=== PATIENT | male | born 1945 | race Caucasian/White ===

== ENCOUNTER 2020-10-30 12:14 | Emergency (ER) | payer MEDICARE, BC ==
[2020-10-30] MEDS ORDERED: Sodium Chloride 0.9% 1,000 ML IV STA (13:25)
[2020-10-30] MEDS ORDERED: Sodium Chloride 0.9% 10 ML Syringe FLUSH PRN (13:25)
[2020-10-30] MEDS ORDERED: fentaNYL 100 MCG/2 ML SDV IVPUSH ONE (13:26)
[2020-10-30] MEDS ORDERED: Ondansetron 4 MG/2 ML SDV IVPUSH ONE (13:26)
--- NOTE | 2020-10-30 13:29 | EDM.PDOC ---
ED HPI GENERAL MEDICAL PROBLEM - General Chief Complaint: Gastrointestinal Problem Stated Complaint: VOMITING FOR SEVERAL DAYS Time Seen by Provider: 10/30/20 13:21 Source of Information: Reports: Patient, Family, RN Notes Reviewed History Limitations: Reports: No Limitations - History of Present Illness INITIAL COMMENTS - FREE TEXT/NARRATIVE: 75-year-old gentleman presents emergency department with a complaint of abdominal pain with nausea vomiting, he states about 3 weeks ago he had a bout of nausea and vomiting it resolved then it has returned over the last couple days he has not had any fevers initially had some diarrhea but now that has gone to constipation has not had a bowel movement for 3 days. No chest pain no shortness of breath - Related Data Allergies Allergy/AdvReac Type Severity Reaction Status Date / Time No Known Allergies Allergy Verified 10/30/20 12:53 Home Meds: Home Meds Aspirin [Halfprin] 81 mg PO DAILY 10/30/20 [History] Clopidogrel [Plavix] 75 mg PO DAILY 10/30/20 [History] DULoxetine [Cymbalta] 30 mg PO DAILY 10/30/20 [History] Fenofibrate,Micronized [Fenofibrate] 134 mg PO DAILY 10/30/20 [History] Gabapentin [Neurontin] 900 mg PO TID 10/30/20 [History] QUEtiapine [SEROquel XR] 50 mg PO DAILY 10/30/20 [History] Spironolactone [Aldactone] 25 mg PO DAILY 10/30/20 [History] Zolpidem [Ambien] 5 mg PO DAILY 10/30/20 [History] allopurinoL [Zyloprim] 100 mg PO DAILY 10/30/20 [History] amLODIPine [Norvasc] 10 mg PO DAILY 10/30/20 [History] atorvaSTATin [Lipitor] 80 mg PO BEDTIME 10/30/20 [History] carBAMazepine [Carbamazepine ER] 2 tab PO BID 10/30/20 [History] carvediloL [Carvedilol] 12.5 mg PO BID 10/30/20 [History] glipiZIDE [Glipizide Xl] 5 mg PO DAILY 10/30/20 [History] lisinopriL [Lisinopril] 10 mg PO BEDTIME 10/30/20 [History] lisinopriL [Lisinopril] 20 mg PO DAILY 10/30/20 [History] Past Medical History HEENT History: Reports: Impaired Vision Cardiovascular History: Reports: Bypass, CAD, High Cholesterol, Hypertension Respiratory History: Reports: COPD Gastrointestinal History: Reports: Chronic Constipation, GERD Musculoskeletal History: Reports: Back Pain, Chronic, Gout Psychiatric History: Reports: Dementia, PTSD Endocrine/Metabolic History: Reports: Obesity/BMI 30+ Hematologic History: Reports: Anticoagulation Therapy - Infectious Disease History Infectious Disease History: Reports: Hepatitis C - Past Surgical History Head Surgeries/Procedures: Reports: None HEENT Surgical History: Reports: None Cardiovascular Surgical History: Reports: Coronary Artery Bypass, Coronary Artery Stent Respiratory Surgical History: Reports: None GI Surgical History: Reports: Cholecystectomy, Colonoscopy Endocrine Surgical History: Reports: None Neurological Surgical History: Reports: Spinal Fusion Dermatological Surgical History: Reports: None Social & Family History - Tobacco Use Tobacco Use Status *Q: Former Tobacco User Used Tobacco, but Quit: Yes Month/Year Tobacco Last Used: 09/2020 Second Hand Smoke Exposure: Yes - Caffeine Use Caffeine Use: Reports: Soda - Recreational Drug Use Recreational Drug Use: No ED ROS GENERAL - Review of Systems Review Of Systems: See Below Constitutional: Reports: No Symptoms HEENT: Reports: No Symptoms Respiratory: Reports: No Symptoms Cardiovascular: Reports: No Symptoms GI/Abdominal: Reports: Abdominal Pain, Constipation, Diarrhea, Flatus, Nausea, Vomiting : Reports: No Symptoms ED EXAM, GI/ABD - Physical Exam Exam: See Below Exam Limited By: No Limitations General Appearance: Alert, WD/WN, No Apparent Distress Respiratory/Chest: No Respiratory Distress, Lungs Clear, Normal Breath Sounds, No Accessory Muscle Use, Chest Non-Tender Cardiovascular: Regular Rate, Rhythm, No Murmur GI/Abdominal Exam: Normal Bowel Sounds, Soft, No Distention, Tender (Epigastric region) Course - Vital Signs Last Recorded V/S: Last Vital Signs Temp 96.4 F L 10/30/20 13:00 Pulse 71 10/30/20 14:39 Resp 26 H 10/30/20 13:00 BP 140/76 10/30/20 14:39 Pulse Ox 97 10/30/20 14:39 - Orders/Labs/Meds Orders: Active Orders 24 hr Category Date Time Status Peripheral IV Care [RC] . DIRECTED Care 10/30/20 13:25 Active Sodium Chloride 0.9% [Saline Flush] Med 10/30/20 13:25 Active 10 ml FLUSH ASDIRECTED PRN Peripheral IV Insertion Adult [OM.PC] Urgent Oth 10/30/20 13:25 Ordered Medication Orders Sodium Chloride (Sodium Chloride 0.9% 10 Ml Syringe) 10 ml FLUSH ASDIRECTED PRN PRN Reason: Keep Vein Open Labs: Laboratory Tests 10/30/20 10/30/20 10/30/20 Range/Units 13:38 13:38 13:38 WBC 10.1 (4.5-11.0) K/uL RBC 4.84 (4.30-5.90) M/uL Hgb 14.6 (12.0-15.0) g/dL Hct 43.7 (40.0-54.0) % MCV 90 (80-98) fL MCH 30 (27-31) pg MCHC 33 (32-36) % Plt Count 264 (150-400) K/uL Neut % (Auto) 73 H (36-66) % Lymph % (Auto) 16 L (24-44) % [place] % (Auto) 8 H (2-6) % Eos % (Auto) 3 (2-4) % Baso % (Auto) 0 (0-1) % Sodium 142 (140-148) mmol/L Potassium 4.0 (3.6-5.2) mmol/L Chloride 105 (100-108) mmol/L Carbon Dioxide 28 (21-32) mmol/L Anion Gap 9.0 (5.0-14.0) mmol/L BUN 15 (7-18) mg/dL Creatinine 1.3 (0.8-1.3) mg/dL Est Cr Clr Drug Dosing 60.49 mL/min Estimated GFR (MDRD) 54 L (>60) Glucose 143 H (74-106) mg/dL Lactic Acid 1.0 (0.4-2.0) mmol/L Calcium 9.0 (8.5-10.1) mg/dL Total Bilirubin 1.0 (0.2-1.0) mg/dL AST 22 (15-37) U/L ALT 23 (12-78) U/L Alkaline Phosphatase 47 (46-116) U/L Troponin I < 0.017 (0.000-0.056) ng/mL Total Protein 6.7 (6.4-8.2) g/dL Albumin 2.7 L (3.4-5.0) g/dL Globulin 4.0 H (2.3-3.5) g/dL Albumin/Globulin Ratio 0.7 L (1.2-2.2) Lipase 831 H (73-393) U/L Urine Color (YELLOW) Urine Appearance (CLEAR) Urine pH (5.0-8.0) Ur Specific [place] (1.008-1.030) Urine Protein (NEGATIVE) mg/dL Urine Glucose (UA) (NEGATIVE) mg/dL Urine Ketones (NEGATIVE) mg/dL Urine Occult Blood (NEGATIVE) Urine Nitrite (NEGATIVE) Urine Bilirubin (NEGATIVE) Urine Urobilinogen (0.2-1.0) EU/dL Ur Leukocyte Esterase (NEGATIVE) Urine RBC (0-5) Urine WBC (0-5) Ur Epithelial Cells Amorphous Sediment Urine Bacteria Urine Mucus 10/30/20 Range/Units 14:38 WBC (4.5-11.0) K/uL RBC (4.30-5.90) M/uL Hgb (12.0-15.0) g/dL Hct (40.0-54.0) % MCV (80-98) fL MCH (27-31) pg MCHC (32-36) % Plt Count (150-400) K/uL Neut % (Auto) (36-66) % Lymph % (Auto) (24-44) % [place] % (Auto) (2-6) % Eos % (Auto) (2-4) % Baso % (Auto) (0-1) % Sodium (140-148) mmol/L Potassium (3.6-5.2) mmol/L Chloride (100-108) mmol/L Carbon Dioxide (21-32) mmol/L Anion Gap (5.0-14.0) mmol/L BUN (7-18) mg/dL Creatinine (0.8-1.3) mg/dL Est Cr Clr Drug Dosing mL/min Estimated GFR (MDRD) (>60) Glucose (74-106) mg/dL Lactic Acid (0.4-2.0) mmol/L Calcium (8.5-10.1) mg/dL Total Bilirubin (0.2-1.0) mg/dL AST (15-37) U/L ALT (12-78) U/L Alkaline Phosphatase (46-116) U/L Troponin I (0.000-0.056) ng/mL Total Protein (6.4-8.2) g/dL Albumin (3.4-5.0) g/dL Globulin (2.3-3.5) g/dL Albumin/Globulin Ratio (1.2-2.2) Lipase (73-393) U/L Urine Color [place] A (YELLOW) Urine Appearance Clear (CLEAR) Urine pH 6.0 (5.0-8.0) Ur Specific [place] 1.020 (1.008-1.030) Urine Protein 30 H (NEGATIVE) mg/dL Urine Glucose (UA) Negative (NEGATIVE) mg/dL Urine Ketones Negative (NEGATIVE) mg/dL Urine Occult Blood Negative (NEGATIVE) Urine Nitrite Negative (NEGATIVE) Urine Bilirubin Small H (NEGATIVE) Urine Urobilinogen 2.0 H (0.2-1.0) EU/dL Ur Leukocyte Esterase Negative (NEGATIVE) Urine RBC 0-5 (0-5) Urine WBC 0-5 (0-5) Ur Epithelial Cells Occasional Amorphous Sediment Few Urine Bacteria Rare Urine Mucus Few Meds: Medications Generic Name Dose Route Start Last Admin Trade Name Freq PRN Reason Stop Dose Admin Sodium Chloride 10 ml 10/30/20 13:25 Sodium Chloride 0.9% 10 Ml Syringe FLUSH ASDIRECTED PRN Keep Vein Open Discontinued Medications Generic Name Dose Route Start Last Admin Trade Name Freq PRN Reason Stop Dose Admin Fentanyl 50 mcg 10/30/20 13:26 10/30/20 13:38 Fentanyl 100 Mcg/2 Ml Sdv IVPUSH 10/30/20 13:27 50 mcg ONETIME ONE Administration Hydromorphone HCl 1 mg 10/30/20 15:23 10/30/20 15:38 Hydromorphone 1 Mg/Ml Syringe IVPUSH 10/30/20 15:24 1 mg ONETIME ONE Administration Sodium Chloride 1,000 mls @ 500 mls/hr 10/30/20 13:25 10/30/20 13:43 Normal Saline IV 10/30/20 15:24 500 mls/hr .BOLUS STA Administration Sodium Chloride 85 mls @ 3 mls/sec 10/30/20 13:45 Normal Saline IV 10/30/20 15:00 ASDIRECTED MIGUELITO Iopamidol 150 ml 10/30/20 13:45 Iopamidol 612 Mg/Ml 150 Ml Bottle IV 10/30/20 15:00 . DIRECTED MIGUELITO Ondansetron HCl 4 mg 10/30/20 13:26 10/30/20 13:40 Ondansetron 4 Mg/2 Ml Sdv IVPUSH 10/30/20 13:27 4 mg ONETIME ONE Administration Sodium Chloride 10 ml 10/30/20 13:31 10/30/20 13:44 Sodium Chloride 0.9% 10 Ml Syringe FLUSH 10/30/20 13:32 10 ml ONETIME ONE Administration Departure - Departure Time of Disposition: 15:50 Disposition: DC/Tfer to [facility] 02 Condition: Fair Clinical Impression: Pancreatitis due to obstruction of pancreatic duct - Discharge Information Referrals: PCP,None [Primary Care Provider] - Forms: ED Department Discharge Sepsis Event Note (ED) - Evaluation Sepsis Screening Result: No Definite Risk - Focused Exam Vital Signs: Vital Signs Temp Pulse Resp BP Pulse Ox 10/30/20 14:39 71 140/76 97 10/30/20 13:40 68 123/66 98 10/30/20 13:00 96.4 F L 66 26 H 121/67 97 10/30/20 12:34 96.4 F L 66 26 H 121/67 97 - My Orders Last 24 Hours: My Active Orders 10/30/20 13:25 Peripheral IV Care [RC] . DIRECTED Sodium Chloride 0.9% [Saline Flush] 10 ml FLUSH ASDIRECTED PRN Peripheral IV Insertion Adult [OM.PC] Urgent - Assessment/Plan Last 24 Hours: My Active Orders 10/30/20 13:25 Peripheral IV Care [RC] . DIRECTED Sodium Chloride 0.9% [Saline Flush] 10 ml FLUSH ASDIRECTED PRN Peripheral IV Insertion Adult [OM.PC] Urgent Plan: Assessment Acuity = acute Site and laterality = pancreatitis with a 4 mm ductal stone Etiology = unknown Manifestations = abdominal pain nausea vomiting Location of injury = Home Lab values = CBC unremarkable CMP unremarkable lipase elevated 831 troponin was negative lactic acid within normal limits CT scan describes the stone about Plan Call discussed case Dr. Stovall emergency room physician [facility] kindly excepted the patient at 1545 will be transported via EMS ground. This is a [place] patient I initially called [facility] however they are currently on diversion until later this evening This note was dictated using [employer] voice recognition software please call with any questions on syntax or grammar.
[2020-10-30] MEDS ORDERED: Sodium Chloride 0.9% 10 ML Syringe FLUSH ONE (13:31)
[2020-10-30] MEDS ORDERED: Iopamidol 612 MG/ML 150 ML Bottle IV SCH (13:45)
--- NOTE | 2020-10-30 14:48 | CT ---
Abdomen Pelvis w Cont CLINICAL HISTORY: Epigastric pain COMPARISON: 2012. TECHNIQUE: Transverse scans were obtained from the base of the lungs to the pubic symphysis following oral contrast and IV infusion of contrast.Auto dosage reduction and iterative reconstructiontechniques employed. FINDINGS: The lung bases are clear. The liver shows a small cyst in the medial segment of the left lobe is a 1.4 cm. There is a 1.2 cm cyst in the lateral segment. There is 12 mm cyst in the right lobe.. The gallbladder has been removed. The spleen has a normal size and shape. The pancreas shows diffuse ductal dilatation and peripancreatic inflammatory changes. There is a 4 mm stone in the pancreatic duct. There are a few scattered small parenchymal pancreatic calcifications. The adrenal glands appear normal bilaterally . There are 2 small nonobstructing calculi in the midpole of the right kidney. There is no hydronephrosis or renal mass. There is a slightly irregular shaped cyst in the lower pole of the left kidney measuring 5.2 x 4.6 x 3.7 cm. This is increased in size since 2013. There is a 2.0 cm round cyst just medial to this which is also increased in size since prior study. The ureters are normal course and caliber. There is bladder wall thickening and prostate is enlarged. There is a fat-containing left inguinal hernia. The aorta has an aorto iliac stent graft. Aortic diameter is decreased since 2013. There is no suspicious retroperitoneal adenopathy. There is a partially calcified or ossified mass off the right 11th rib currently measuring 10.7 x 7.9 x 9.8 cm. This is increased in size since 2013. IMPRESSION: Diffuse pancreatitis with pancreatic ductal dilatation secondary to a 4 mm stone in the duct within the pancreatic head. Patient has had cholecystectomy. Aorto iliac stent graft Partially calcified or ossified mass of the right 11th rib has increased in size significantly since 2013 Small right renal calculi Hepatic and renal cysts
[2020-10-30] MEDS ORDERED: HYDROmorphone 1 MG/ML Syringe IVPUSH ONE (15:23)
== END 2020-10-30 19:45 ==
LOC: JP.ED 12:14
DX: K85.90 Acute pancreatitis without necrosis or infection, unspecified (principal); K86.89 Other specified diseases of pancreas; I25.10 Atherosclerotic heart disease of native coronary artery without angina pectoris; E78.00 Pure hypercholesterolemia, unspecified; I10 Essential (primary) hypertension; E66.9 Obesity, unspecified; Z79.82 Long term (current) use of aspirin; Z79.02 Long term (current) use of antithrombotics/antiplatelets; Z79.899 Other long term (current) drug therapy; Z68.32 Body mass index [BMI] 32.0-32.9, adult; Z20.822 Contact with and (suspected) exposure to COVID-19; Z87.891 Personal history of nicotine dependence
CPT/HCPCS: 36415; 74177; 80053; 81001; 83605; 83690; 84484; 85025; 96374; 96375; 99285; J1170; J2405; J3010; J7030; U0002

== ENCOUNTER 2021-07-30 07:05 | Emergency (ER) | payer MEDICARE, BC ==
[2021-07-30] MEDS ORDERED: cefTRIAXone 1 GM in Sodium Chloride 0.9% 50 ML IV ONE (07:48)
[2021-07-30] MEDS ORDERED: Phenazopyridine 95 MG Tab PO ONE (08:31)
== END 2021-07-30 09:18 | disposition home or self-care (01) ==
LOC: JP.ED 07:05
DX: N39.0 Urinary tract infection, site not specified (principal); I25.810 Atherosclerosis of coronary artery bypass graft(s) without angina pectoris; I10 Essential (primary) hypertension; E78.00 Pure hypercholesterolemia, unspecified; J44.9 Chronic obstructive pulmonary disease, unspecified; E66.9 Obesity, unspecified; Z68.30 Body mass index [BMI] 30.0-30.9, adult; Z79.01 Long term (current) use of anticoagulants; Z87.891 Personal history of nicotine dependence; Z79.82 Long term (current) use of aspirin; Z79.02 Long term (current) use of antithrombotics/antiplatelets; Z79.899 Other long term (current) drug therapy
CPT/HCPCS: 81001; 87086; 87088; 87186; 96365; 99283; A9270; J0696

== ENCOUNTER 2021-08-01 15:23 | Inpatient (IN) | payer MEDICARE, BC ==
[2021-08-01] MEDS ORDERED: cefTRIAXone 1 GM in Sodium Chloride 0.9% 50 ML IV ONE (15:56)
[2021-08-01] MEDS ORDERED: Sodium Chloride 0.9% 1,000 ML IV SCH (16:00)
[2021-08-01 17:02] LABS: CORONAVIRUS COVID-19 NAA NEGATIVE (NEGATIVE)
[2021-08-01] MEDS ORDERED: Sodium Chloride 0.9% 10 ML Syringe FLUSH PRN (17:13)
[2021-08-01] MEDS ORDERED: Ondansetron 4 MG/2 ML SDV IV PRN (17:13)
[2021-08-01] MEDS ORDERED: 50% Dextrose in Water 50 ML Syringe IV PRN (17:13)
[2021-08-01] MEDS ORDERED: Acetaminophen 325 MG Tab PO PRN (17:13)
[2021-08-01] MEDS ORDERED: Glucose Gel 15 GM in 37.5 GM Tube PO PRN (17:13)
[2021-08-01] MEDS ORDERED: Pantoprazole 40 MG Vial IVPUSH ONE (18:00)
[2021-08-01] MEDS: Insulin Lispro 100 Unit/ML 3 ML KwikPen SUBCUT SCH ×2 (18:01→21:24)
[2021-08-01] MEDS: Enoxaparin 40 MG/0.4 ML Syringe SUBCUT SCH (18:01)
[2021-08-01] MEDS: Baclofen 10 MG Tab PO SCH ×2 (18:01→21:34)
[2021-08-01] MEDS ORDERED: Baclofen 10 MG Tab PO SCH (21:00)
[2021-08-01] MEDS ORDERED: Zolpidem 5 MG Tab PO PRN (21:00)
[2021-08-01] MEDS ORDERED: Non-Formulary Medication 1 Each (Atorvastatin [Lipitor] 80 MG Tablet) PO SCH (21:00)
[2021-08-01] MEDS ORDERED: Lisinopril 10 MG Tab PO SCH ×2 (21:00→21:15)
[2021-08-01] MEDS: Gabapentin 300 MG Cap PO SCH (21:33)
[2021-08-01] MEDS: carBAMazepine 100 MG Tab ER PO SCH (21:33)
[2021-08-01] MEDS: Carvedilol 12.5 MG Tab PO SCH (21:33)
[2021-08-01] MEDS: atorvaSTATin 20 MG Tab PO SCH (21:34)
[2021-08-01] MEDS: Sodium Chloride 0.9% 1,000 ML IV SCH (21:42)
[2021-08-02] MEDS: Sodium Chloride 0.9% 1,000 ML IV SCH ×2 (04:33→12:40)
[2021-08-02] MEDS: Pantoprazole 40 MG Tab.CR PO SCH (08:29)
[2021-08-02] MEDS: Spironolactone 25 MG Tab PO SCH (08:30)
[2021-08-02] MEDS: carBAMazepine 100 MG Tab ER PO SCH ×2 (08:30→21:28)
[2021-08-02] MEDS: Clopidogrel 75 MG Tab PO SCH (08:30)
[2021-08-02] MEDS: Fenofibrate,Micronized 67 MG Cap PO SCH (08:31)
[2021-08-02] MEDS: amLODIPine 5 MG Tab PO SCH (08:31)
[2021-08-02] MEDS: Gabapentin 300 MG Cap PO SCH ×3 (08:31→21:29)
[2021-08-02] MEDS: Aspirin 81 MG Tab.EC PO SCH (08:32)
[2021-08-02] MEDS: Carvedilol 12.5 MG Tab PO SCH ×2 (08:32→21:28)
[2021-08-02] MEDS: Baclofen 10 MG Tab PO SCH ×3 (08:32→21:28)
[2021-08-02] MEDS: Allopurinol 100 MG Tab PO SCH (08:33)
[2021-08-02] MEDS ORDERED: DULoxetine 30 MG Cap PO SCH (09:00)
[2021-08-02] MEDS ORDERED: Non-Formulary Medication 1 Each (Fenofibrate,Micronized [Fenofibrate] 134 MG Cap) PO SCH (09:00)
[2021-08-02] MEDS: Insulin Lispro 100 Unit/ML 3 ML KwikPen SUBCUT SCH ×4 (09:49→21:29)
[2021-08-02] MEDS ORDERED: Potassium Chloride 20 MEQ Tab.ER PO ONE ×2 (10:30→17:00)
[2021-08-02] MEDS: QUEtiapine 25 MG Tab PO SCH (10:36)
[2021-08-02] MEDS: Lisinopril 20 MG Tab PO SCH (11:16)
[2021-08-02] MEDS: cefTRIAXone 1 GM in Sodium Chloride 0.9% 50 ML IV SCH (17:31)
[2021-08-02] MEDS: Enoxaparin 40 MG/0.4 ML Syringe SUBCUT SCH (17:34)
[2021-08-02] MEDS: atorvaSTATin 20 MG Tab PO SCH (21:28)
[2021-08-03] MEDS: Sodium Chloride 0.9% 1,000 ML IV SCH (04:04)
[2021-08-03] MEDS: Pantoprazole 40 MG Tab.CR PO SCH (07:36)
[2021-08-03] MEDS: Spironolactone 25 MG Tab PO SCH ×2 (07:37→09:16)
[2021-08-03] MEDS: Carvedilol 12.5 MG Tab PO SCH ×3 (07:38→20:11)
[2021-08-03] MEDS: carBAMazepine 100 MG Tab ER PO SCH ×3 (07:38→20:12)
[2021-08-03] MEDS: DULoxetine 30 MG Cap PO SCH ×2 (07:39→09:16)
[2021-08-03] MEDS: Aspirin 81 MG Tab.EC PO SCH ×2 (07:40→09:17)
[2021-08-03] MEDS: Baclofen 10 MG Tab PO SCH ×2 (07:40→09:17)
[2021-08-03] MEDS: Fenofibrate,Micronized 67 MG Cap PO SCH ×2 (07:40→09:17)
[2021-08-03] MEDS: Gabapentin 300 MG Cap PO SCH ×4 (07:41→20:12)
[2021-08-03] MEDS: amLODIPine 5 MG Tab PO SCH ×2 (07:41→09:17)
[2021-08-03] MEDS: Clopidogrel 75 MG Tab PO SCH ×2 (07:41→09:17)
[2021-08-03] MEDS: QUEtiapine 25 MG Tab PO SCH ×2 (07:42→09:17)
[2021-08-03] MEDS: Allopurinol 100 MG Tab PO SCH ×2 (07:42→09:17)
[2021-08-03] MEDS: Lisinopril 20 MG Tab PO SCH ×2 (07:42→09:17)
[2021-08-03] MEDS: Insulin Lispro 100 Unit/ML 3 ML KwikPen SUBCUT SCH ×4 (07:50→21:21)
[2021-08-03] MEDS ORDERED: Baclofen 10 MG Tab PO PRN (10:57)
[2021-08-03] MEDS: cefTRIAXone 1 GM in Sodium Chloride 0.9% 50 ML IV SCH (16:34)
[2021-08-03] MEDS: Enoxaparin 40 MG/0.4 ML Syringe SUBCUT SCH (17:21)
[2021-08-03] MEDS: atorvaSTATin 20 MG Tab PO SCH (20:12)
[2021-08-04] MEDS: Insulin Lispro 100 Unit/ML 3 ML KwikPen SUBCUT SCH ×4 (07:43→21:07)
[2021-08-04] MEDS: Pantoprazole 40 MG Tab.CR PO SCH (07:45)
[2021-08-04] MEDS: Gabapentin 300 MG Cap PO SCH ×3 (10:05→21:12)
[2021-08-04] MEDS: carBAMazepine 100 MG Tab ER PO SCH ×2 (10:05→21:12)
[2021-08-04] MEDS: Carvedilol 12.5 MG Tab PO SCH ×2 (10:05→21:12)
[2021-08-04] MEDS: Aspirin 81 MG Tab.EC PO SCH (10:06)
[2021-08-04] MEDS: DULoxetine 30 MG Cap PO SCH (10:06)
[2021-08-04] MEDS: Fenofibrate,Micronized 67 MG Cap PO SCH (10:07)
[2021-08-04] MEDS: Lisinopril 20 MG Tab PO SCH (10:07)
[2021-08-04] MEDS: Clopidogrel 75 MG Tab PO SCH (10:07)
[2021-08-04] MEDS: Spironolactone 25 MG Tab PO SCH (10:07)
[2021-08-04] MEDS: amLODIPine 5 MG Tab PO SCH (10:08)
[2021-08-04] MEDS: QUEtiapine 25 MG Tab PO SCH (10:08)
[2021-08-04] MEDS: Allopurinol 100 MG Tab PO SCH (10:09)
[2021-08-04] MEDS: cefTRIAXone 1 GM in Sodium Chloride 0.9% 50 ML IV SCH (15:22)
[2021-08-04] MEDS: Enoxaparin 40 MG/0.4 ML Syringe SUBCUT SCH (17:36)
[2021-08-04] MEDS: atorvaSTATin 20 MG Tab PO SCH (21:12)
[2021-08-05] MEDS: Pantoprazole 40 MG Tab.CR PO SCH (08:12)
[2021-08-05] MEDS: QUEtiapine 25 MG Tab PO SCH (09:00)
[2021-08-05] MEDS: DULoxetine 30 MG Cap PO SCH (09:00)
[2021-08-05] MEDS ORDERED: glipiZIDE 5 MG Tab.ER PO SCH (09:00)
[2021-08-05] MEDS: Allopurinol 100 MG Tab PO SCH (09:00)
[2021-08-05] MEDS ORDERED: Cephalexin 250 MG Cap PO SCH (09:00)
[2021-08-05] MEDS: Gabapentin 300 MG Cap PO SCH ×2 (09:00→13:27)
[2021-08-05] MEDS: Lisinopril 20 MG Tab PO SCH (09:00)
[2021-08-05] MEDS: Aspirin 81 MG Tab.EC PO SCH (09:00)
[2021-08-05] MEDS: amLODIPine 5 MG Tab PO SCH (09:00)
[2021-08-05] MEDS: Clopidogrel 75 MG Tab PO SCH (09:01)
[2021-08-05] MEDS: Carvedilol 12.5 MG Tab PO SCH (09:01)
[2021-08-05] MEDS: Spironolactone 25 MG Tab PO SCH (09:01)
[2021-08-05] MEDS: Fenofibrate,Micronized 67 MG Cap PO SCH (09:05)
[2021-08-05] MEDS: carBAMazepine 100 MG Tab ER PO SCH (09:06)
== END 2021-08-05 13:30 | disposition home health service (06) | DRG 690 ==
LOC: JP.ED 15:23 → JP.MS 16:16
PROVIDERS: ADMIT Hospitalist; ATTEND Internal Medicine
DX: N39.0 Urinary tract infection, site not specified (principal); R53.1 Weakness; E11.9 Type 2 diabetes mellitus without complications; I25.10 Atherosclerotic heart disease of native coronary artery without angina pectoris; B96.20 Unspecified Escherichia coli [E. coli] as the cause of diseases classified elsewhere; H54.7 Unspecified visual loss; E78.00 Pure hypercholesterolemia, unspecified; I10 Essential (primary) hypertension; J44.9 Chronic obstructive pulmonary disease, unspecified; K59.09 Other constipation; K21.9 Gastro-esophageal reflux disease without esophagitis; G89.29 Other chronic pain; M54.9 Dorsalgia, unspecified; M10.9 Gout, unspecified; F43.10 Post-traumatic stress disorder, unspecified; R06.6 Hiccough; Z20.822 Contact with and (suspected) exposure to COVID-19; E66.9 Obesity, unspecified; F03.90 Unspecified dementia, unspecified severity, without behavioral disturbance, psychotic disturbance, mood disturbance, and anxiety; Z79.01 Long term (current) use of anticoagulants; Z79.82 Long term (current) use of aspirin; Z95.1 Presence of aortocoronary bypass graft; Z79.02 Long term (current) use of antithrombotics/antiplatelets; Z87.440 Personal history of urinary (tract) infections; Z79.84 Long term (current) use of oral hypoglycemic drugs; Z79.899 Other long term (current) drug therapy; Z90.49 Acquired absence of other specified parts of digestive tract; Z98.1 Arthrodesis status; Z95.5 Presence of coronary angioplasty implant and graft; Z86.19 Personal history of other infectious and parasitic diseases
CPT/HCPCS: 0241U; 36415; 70450; 80048; 80053; 82947; 83605; 84132; 85025; 96365; 97162; 97530; 97535; 99285; A9270-GY; C9113; J0696; J1650; J1815; J7030

== ENCOUNTER 2022-01-15 09:52 | Inpatient (IN) | payer MEDICARE, BC ==
[2022-01-15] MEDS ORDERED: Lactated Ringers 1,000 ML IV SCH (10:45)
[2022-01-15] MEDS ORDERED: Propofol 200 MG/20 ML SDV ONE ×2 (10:50→13:07)
[2022-01-15] MEDS ORDERED: fentaNYL 100 MCG/2 ML SDV ONE (10:50)
[2022-01-15] MEDS ORDERED: Midazolam 1 MG/ML 2 ML SDV ONE (10:50)
[2022-01-15] MEDS ORDERED: Sodium Chloride 0.9% 10 ML Syringe FLUSH PRN ×2 (14:15→14:37)
[2022-01-15] MEDS ORDERED: Dextrose 5%-0.45% NaCl 1,000 ML IV SCH ×3 (14:15→23:55)
[2022-01-15] MEDS ORDERED: Zolpidem 5 MG Tab PO PRN (14:28)
[2022-01-15] MEDS ORDERED: Albuterol/Ipratropium 3.0-0.5 MG/3 ML Neb Soln NEB PRN (14:37)
[2022-01-15] MEDS ORDERED: Dextrose 5%-Lactated Ringers 1,000 ML IV SCH ×2 (15:15)
[2022-01-15 15:29] LABS: ESTIMATED GFR 63 mL/min (>60)
[2022-01-15] MEDS: amLODIPine 5 MG Tab PO SCH (15:56)
[2022-01-15] MEDS ORDERED: Nicotine 21 MG/24 Hr Patch TRDERM SCH (16:00)
[2022-01-15] MEDS ORDERED: Lisinopril 20 MG Tab PO ONE (17:54)
[2022-01-15] MEDS ORDERED: Lisinopril 10 MG Tab ONE ×2 (18:34→23:14)
[2022-01-15] MEDS ORDERED: Ondansetron 4 MG Tab.DIS PO PRN (18:34)
[2022-01-15] MEDS: Carvedilol 12.5 MG Tab PO SCH (18:43)
[2022-01-15] MEDS ORDERED: Carvedilol 12.5 MG Tab PO SCH (21:00)
[2022-01-15] MEDS ORDERED: Lisinopril 10 MG Tab PO ONE (21:00)
[2022-01-15] MEDS ORDERED: QUEtiapine 25 MG Tab PO SCH (21:00)
[2022-01-15] MEDS ORDERED: atorvaSTATin 20 MG Tab PO SCH (21:00)
[2022-01-15] MEDS: carBAMazepine 100 MG Tab ER PO SCH (23:04)
[2022-01-15] MEDS: Gabapentin 300 MG Cap PO SCH (23:04)
[2022-01-16 05:12] LABS: ESTIMATED GFR 70 mL/min (>60); TROPONIN I HIGH SENSITIVITY 24.2 pg/mL (<=60.3)
[2022-01-16] MEDS ORDERED: Bupivacaine 0.5% 30 ML SDV ONE (06:55)
[2022-01-16] MEDS ORDERED: Lidocaine 1% with EPINEPHrine 1:100,000 50 ML MDV ONE (06:56)
[2022-01-16] MEDS ORDERED: Meropenem 500 MG SDV ONE (07:47)
[2022-01-16] MEDS: amLODIPine 5 MG Tab PO SCH (08:15)
[2022-01-16] MEDS: Carvedilol 12.5 MG Tab PO SCH (08:17)
[2022-01-16] MEDS: carBAMazepine 100 MG Tab ER PO SCH (08:19)
[2022-01-16] MEDS: Gabapentin 300 MG Cap PO SCH (08:20)
[2022-01-16] MEDS ORDERED: DULoxetine 30 MG Cap PO SCH (09:00)
[2022-01-16] MEDS ORDERED: Naloxone 0.4 MG/ML SDV IVPUSH PRN (12:00)
[2022-01-16] MEDS ORDERED: fentaNYL 2,500 MCG in Sodium Chloride 0.9% 200 ML EPIDUR SCH (12:00)
[2022-01-16] MEDS ORDERED: cefOXitin 2 GM in Sodium Chloride 0.9% 50 ML IV ONE (12:00)
== END 2022-01-16 11:30 | disposition home or self-care (01) | DRG 395 ==
LOC: JP.SDS 09:52 → JP.MS 14:15 → EDSTATUS 17:30
PROVIDERS: ADMIT Family Medicine; ATTEND Hospitalist
PROC: 0DBK8ZZ Excision of Ascending Colon, Via Natural or Artificial Opening Endoscopic (ICD-10-PCS; principal; 2022-01-15)
DX: D12.2 Benign neoplasm of ascending colon (principal); E11.51 Type 2 diabetes mellitus with diabetic peripheral angiopathy without gangrene; E11.22 Type 2 diabetes mellitus with diabetic chronic kidney disease; I12.9 Hypertensive chronic kidney disease with stage 1 through stage 4 chronic kidney disease, or unspecified chronic kidney disease; E78.5 Hyperlipidemia, unspecified; B18.2 Chronic viral hepatitis C; G50.0 Trigeminal neuralgia; I25.10 Atherosclerotic heart disease of native coronary artery without angina pectoris; K59.09 Other constipation; K21.9 Gastro-esophageal reflux disease without esophagitis; F03.90 Unspecified dementia, unspecified severity, without behavioral disturbance, psychotic disturbance, mood disturbance, and anxiety; F43.12 Post-traumatic stress disorder, chronic; F17.200 Nicotine dependence, unspecified, uncomplicated; I45.6 Pre-excitation syndrome; E66.9 Obesity, unspecified; N18.2 Chronic kidney disease, stage 2 (mild); I25.5 Ischemic cardiomyopathy; J43.1 Panlobular emphysema; E79.0 Hyperuricemia without signs of inflammatory arthritis and tophaceous disease; Z68.29 Body mass index [BMI] 29.0-29.9, adult; Z79.82 Long term (current) use of aspirin; Z79.899 Other long term (current) drug therapy; Z86.010 Personal history of colon polyps; Z90.49 Acquired absence of other specified parts of digestive tract; Z87.440 Personal history of urinary (tract) infections; Z95.1 Presence of aortocoronary bypass graft; Z95.5 Presence of coronary angioplasty implant and graft; Z90.89 Acquired absence of other organs; Z98.890 Other specified postprocedural states; Z79.4 Long term (current) use of insulin; Z86.79 Personal history of other diseases of the circulatory system; Z97.3 Presence of spectacles and contact lenses
CPT/HCPCS: 36415; 71046; 71046-26; 80053; 82378; 82947; 83880; 84484; 85025; 85610; 86850; 86900; 86901; 88305; 93005; 93010; 94640; 99231; A9270-GY; J2020; J2185; J2250; J2704; J3010; J3490; J7120; J7121; J7620

== ENCOUNTER 2022-03-23 07:15 | Inpatient (IN) | payer MEDICARE, BC ==
[~2022-03-23 07:15] MED LIST: Dexamethasone 4 MG/ML SDV ONE; Glycopyrrolate 0.2 MG/ML 5 ML MDV ONE; Meropenem 500 MG SDV ONE; Neostigmine Methylsulfate 1 MG/ML 5 ML Syringe ONE; Ondansetron 4 MG/2 ML SDV ONE; Propofol 200 MG/20 ML SDV ONE; Rocuronium 50 MG/5 ML Vial ONE; Sodium Chloride 0.9% 10 ML ONE; Succinylcholine 200 MG/10 ML MDV ONE; fentaNYL 100 MCG/2 ML SDV ONE; fentaNYL 250 MCG/5 ML SDV ONE
[2022-03-23] MEDS ORDERED: Gabapentin 300 MG Cap PO ONE (07:30)
[2022-03-23] MEDS ORDERED: Acetaminophen 500 MG Tab PO ONE (07:30)
[2022-03-23] MEDS ORDERED: Dextrose 5%-Lactated Ringers 1,000 ML IV SCH ×2 (07:30→12:00)
[2022-03-23] MEDS ORDERED: Naloxone 0.4 MG/ML SDV IVPUSH PRN (08:30)
[2022-03-23] MEDS ORDERED: cefOXitin 2 GM in Sodium Chloride 0.9% 50 ML IV ONE (08:30)
[2022-03-23] MEDS ORDERED: Albuterol/Ipratropium 3.0-0.5 MG/3 ML Neb Soln NEB ONE (08:30)
[2022-03-23] MEDS: Formoterol/Mometasone 200-5 MCG 8.8 GM Inhaler IH SCH ×2 (08:51→20:33)
[2022-03-23] MEDS ORDERED: fentaNYL 100 MCG/2 ML SDV ONE (10:13)
[2022-03-23] MEDS ORDERED: Lactated Ringers 1,000 ML ONE (10:14)
[2022-03-23] MEDS ORDERED: Linezolid 600 MG/300 ML Premix Bag IRR ONE (10:45)
[2022-03-23] MEDS ORDERED: Nitroglycerin 0.4 MG Tab.SL SL PRN (12:02)
[2022-03-23] MEDS: Pantoprazole 40 MG Vial IV SCH (12:27)
[2022-03-23] MEDS ORDERED: Meperidine PF 50 MG/ML Syringe IM PRN (13:10)
[2022-03-23] MEDS: Gabapentin 300 MG Cap PO SCH ×2 (13:57→20:30)
[2022-03-23] MEDS ORDERED: diphenhydrAMINE 50 MG/ML SDV IVPUSH PRN (14:00)
[2022-03-23] MEDS ORDERED: Naloxone 0.4 MG/ML SDV IV PRN (14:00)
[2022-03-23] MEDS: cefOXitin 2 GM in Sodium Chloride 0.9% 50 ML IV SCH ×2 (15:07→20:30)
[2022-03-23] MEDS: fentaNYL 2,500 MCG in Sodium Chloride 0.9% 200 ML EPIDUR SCH (15:31)
[2022-03-23] MEDS: Dextrose 5%-Lactated Ringers 1,000 ML with Naloxone 0.4 MG IV SCH ×2 (16:12)
[2022-03-23] MEDS: Carvedilol 12.5 MG Tab PO SCH (16:48)
[2022-03-23] MEDS ORDERED: Carvedilol 12.5 MG Tab PO SCH (17:00)
[2022-03-23] MEDS: Ondansetron 4 MG/2 ML SDV IVPUSH PRN (19:32)
[2022-03-23] MEDS: carBAMazepine 100 MG Tab ER PO SCH (20:31)
[2022-03-23] MEDS: QUEtiapine 25 MG Tab PO SCH (20:34)
[2022-03-23] MEDS ORDERED: hydrOXYzine HCL 100 MG/2 ML SDV IM ONE (20:57)
[2022-03-23] MEDS ORDERED: Scopolamine 1.5 MG Transdermal Patch TOP ONE (20:57)
[2022-03-24] MEDS: Dextrose 5%-Lactated Ringers 1,000 ML with Naloxone 0.4 MG IV SCH ×6 (00:19→16:42)
[2022-03-24] MEDS: cefOXitin 2 GM in Sodium Chloride 0.9% 50 ML IV SCH ×3 (02:58→14:48)
[2022-03-24 05:25] LABS: ESTIMATED GFR 58 mL/min (>60)
[2022-03-24] MEDS: Formoterol/Mometasone 200-5 MCG 8.8 GM Inhaler IH SCH ×2 (07:05→20:42)
[2022-03-24] MEDS ORDERED: Dextrose 5%-Lactated Ringers 1,000 ML with Naloxone 0.4 MG IV SCH ×2 (08:09)
[2022-03-24] MEDS ORDERED: fentaNYL 100 MCG/2 ML SDV ONE (08:23)
[2022-03-24] MEDS ORDERED: Sodium Chloride 0.9% 10 ML ONE (08:23)
[2022-03-24] MEDS ORDERED: Azithromycin 125 MG in Sodium Chloride 0.9% 150 ML IV SCH (09:00)
[2022-03-24] MEDS ORDERED: SCOPOLAMINE PATCH CHECK TOP SCH (09:00)
[2022-03-24] MEDS: Carvedilol 12.5 MG Tab PO SCH ×2 (09:04→16:41)
[2022-03-24] MEDS: fentaNYL 2,500 MCG in Sodium Chloride 0.9% 200 ML EPIDUR SCH (09:13)
[2022-03-24] MEDS: DULoxetine 30 MG Cap PO SCH (09:21)
[2022-03-24] MEDS: Fenofibrate,Micronized 67 MG Cap PO SCH (09:22)
[2022-03-24] MEDS: Bisacodyl 5 MG Tab PO SCH ×2 (09:22→20:42)
[2022-03-24] MEDS: Gabapentin 300 MG Cap PO SCH ×3 (09:22→20:44)
[2022-03-24] MEDS: carBAMazepine 100 MG Tab ER PO SCH ×2 (09:22→20:41)
[2022-03-24] MEDS: Aspirin 81 MG Tab.EC PO SCH (09:22)
[2022-03-24] MEDS: [UNRECOGNIZED DRUG - REMARK] TOP SCH (09:23)
[2022-03-24] MEDS: Docusate Sodium 100 MG Cap PO SCH ×2 (09:23→20:41)
[2022-03-24] MEDS: Spironolactone 25 MG Tab PO SCH (09:23)
[2022-03-24] MEDS: Lisinopril 20 MG Tab PO SCH (09:26)
[2022-03-24] MEDS: amLODIPine 5 MG Tab PO SCH (09:27)
[2022-03-24] MEDS: Allopurinol 100 MG Tab PO SCH (09:28)
[2022-03-24] MEDS ORDERED: Cyclobenzaprine 10 MG Tab PO PRN (10:00)
[2022-03-24] MEDS: Azithromycin 125 MG in Sodium Chloride 0.9% 100 ML IV SCH ×2 (10:25→21:57)
[2022-03-24] MEDS: Pantoprazole 40 MG Vial IV SCH (12:03)
[2022-03-24] MEDS: Ondansetron 4 MG/2 ML SDV IVPUSH PRN (20:27)
[2022-03-24] MEDS: atorvaSTATin 20 MG Tab PO SCH (20:43)
[2022-03-24] MEDS: QUEtiapine 25 MG Tab PO SCH (20:45)
[2022-03-25] MEDS: Dextrose 5%-Lactated Ringers 1,000 ML with Naloxone 0.4 MG IV SCH ×4 (03:44→14:07)
[2022-03-25] MEDS: fentaNYL 2,500 MCG in Sodium Chloride 0.9% 200 ML EPIDUR SCH (04:56)
[2022-03-25 05:15] LABS: ESTIMATED GFR 63 mL/min (>60)
[2022-03-25] MEDS: Formoterol/Mometasone 200-5 MCG 8.8 GM Inhaler IH SCH ×2 (07:18→20:30)
[2022-03-25] MEDS: Carvedilol 12.5 MG Tab PO SCH ×2 (08:13→16:22)
[2022-03-25] MEDS: amLODIPine 5 MG Tab PO SCH (08:15)
[2022-03-25] MEDS: Lisinopril 20 MG Tab PO SCH (08:15)
[2022-03-25] MEDS: Spironolactone 25 MG Tab PO SCH (08:16)
[2022-03-25] MEDS: carBAMazepine 100 MG Tab ER PO SCH ×2 (08:20→20:29)
[2022-03-25] MEDS: Docusate Sodium 100 MG Cap PO SCH ×2 (08:20→20:30)
[2022-03-25] MEDS: DULoxetine 30 MG Cap PO SCH (08:21)
[2022-03-25] MEDS: Fenofibrate,Micronized 67 MG Cap PO SCH (08:21)
[2022-03-25] MEDS: Bisacodyl 5 MG Tab PO SCH ×2 (08:21→20:29)
[2022-03-25] MEDS: Gabapentin 300 MG Cap PO SCH ×3 (08:22→20:29)
[2022-03-25] MEDS: Aspirin 81 MG Tab.EC PO SCH (08:22)
[2022-03-25] MEDS: Allopurinol 100 MG Tab PO SCH (08:23)
[2022-03-25] MEDS: Clopidogrel 75 MG Tab PO SCH (08:23)
[2022-03-25] MEDS: [UNRECOGNIZED DRUG - REMARK] TOP SCH (08:24)
[2022-03-25] MEDS: Acetaminophen 500 MG Tab PO SCH ×3 (09:17→20:29)
[2022-03-25] MEDS: Azithromycin 125 MG in Sodium Chloride 0.9% 100 ML IV SCH ×2 (09:18→20:42)
[2022-03-25] MEDS: Ibuprofen 400 MG Tab PO SCH ×3 (09:20→21:54)
[2022-03-25] MEDS: Pantoprazole 40 MG Vial IV SCH (12:06)
[2022-03-25] MEDS: QUEtiapine 25 MG Tab PO SCH (20:29)
[2022-03-25] MEDS: atorvaSTATin 20 MG Tab PO SCH (20:29)
[2022-03-26] MEDS: fentaNYL 2,500 MCG in Sodium Chloride 0.9% 200 ML EPIDUR SCH (00:57)
[2022-03-26] MEDS: Dextrose 5%-Lactated Ringers 1,000 ML with Naloxone 0.4 MG IV SCH ×4 (00:57→10:00)
[2022-03-26] MEDS: Acetaminophen 500 MG Tab PO SCH ×4 (03:12→19:41)
[2022-03-26] MEDS: Ibuprofen 400 MG Tab PO SCH ×4 (03:12→22:45)
[2022-03-26] MEDS: Ondansetron 4 MG/2 ML SDV IVPUSH PRN (03:48)
[2022-03-26 04:56] LABS: ESTIMATED GFR 63 mL/min (>60)
[2022-03-26] MEDS ORDERED: Bupivacaine 0.5% 50 ML MDV ONE (06:36)
[2022-03-26] MEDS ORDERED: Lidocaine 1% with EPINEPHrine 1:100,000 50 ML MDV ONE (06:36)
[2022-03-26] MEDS ORDERED: Meropenem 500 MG SDV ONE (06:36)
[2022-03-26] MEDS: Formoterol/Mometasone 200-5 MCG 8.8 GM Inhaler IH SCH ×3 (07:13→22:36)
[2022-03-26] MEDS ORDERED: Ropivacaine 50 ML, dexAMETHasone 8 MG, EPINEPHrine 0.4 MG, Sodium Chloride 0.9% 27.6 ML NERVRT SCH ×4 (07:15)
[2022-03-26] MEDS ORDERED: Propofol 200 MG/20 ML SDV ONE (07:51)
[2022-03-26] MEDS ORDERED: Furosemide 20 MG/2 ML VIAL IV ONE ×2 (09:00→16:00)
[2022-03-26] MEDS: Carvedilol 12.5 MG Tab PO SCH ×2 (09:30→16:24)
[2022-03-26] MEDS: Docusate Sodium 100 MG Cap PO SCH ×3 (09:32→22:35)
[2022-03-26] MEDS: carBAMazepine 100 MG Tab ER PO SCH ×3 (09:32→22:35)
[2022-03-26] MEDS: Spironolactone 25 MG Tab PO SCH (09:32)
[2022-03-26] MEDS: Bisacodyl 5 MG Tab PO SCH ×3 (09:33→22:36)
[2022-03-26] MEDS: Fenofibrate,Micronized 67 MG Cap PO SCH (09:33)
[2022-03-26] MEDS: Aspirin 81 MG Tab.EC PO SCH (09:33)
[2022-03-26] MEDS: Gabapentin 300 MG Cap PO SCH ×4 (09:33→22:36)
[2022-03-26] MEDS: DULoxetine 30 MG Cap PO SCH (09:33)
[2022-03-26] MEDS: amLODIPine 5 MG Tab PO SCH (09:34)
[2022-03-26] MEDS: Clopidogrel 75 MG Tab PO SCH (09:35)
[2022-03-26] MEDS: Allopurinol 100 MG Tab PO SCH (09:35)
[2022-03-26] MEDS: Lisinopril 20 MG Tab PO SCH (09:35)
[2022-03-26] MEDS ORDERED: Dextrose 5%-Lactated Ringers 1,000 ML IV SCH (09:45)
[2022-03-26] MEDS: Azithromycin 125 MG in Sodium Chloride 0.9% 100 ML IV SCH ×2 (09:50→21:45)
[2022-03-26] MEDS ORDERED: Potassium Phos in 0.9 % NaCl 15 MMOL in Premix Bag 1 BAG IV ONE ×2 (10:00)
[2022-03-26] MEDS: Pantoprazole 40 MG Vial IV SCH (12:00)
[2022-03-26] MEDS: HYDROmorphone 2 MG Tab PO PRN (16:23)
[2022-03-26] MEDS: atorvaSTATin 20 MG Tab PO SCH ×2 (19:46→22:36)
[2022-03-26] MEDS: QUEtiapine 25 MG Tab PO SCH (22:40)
[2022-03-27] MEDS: Acetaminophen 500 MG Tab PO SCH ×4 (02:54→22:13)
[2022-03-27] MEDS: Ibuprofen 400 MG Tab PO SCH ×4 (04:57→22:17)
[2022-03-27 05:11] LABS: ESTIMATED GFR 63 mL/min (>60)
[2022-03-27] MEDS: Formoterol/Mometasone 200-5 MCG 8.8 GM Inhaler IH SCH ×2 (07:11→22:15)
[2022-03-27] MEDS: Gabapentin 300 MG Cap PO SCH ×3 (08:33→22:15)
[2022-03-27] MEDS: amLODIPine 5 MG Tab PO SCH (08:33)
[2022-03-27] MEDS: carBAMazepine 100 MG Tab ER PO SCH ×2 (08:33→22:15)
[2022-03-27] MEDS: Lisinopril 20 MG Tab PO SCH (08:34)
[2022-03-27] MEDS: Fenofibrate,Micronized 67 MG Cap PO SCH (08:34)
[2022-03-27] MEDS: Aspirin 81 MG Tab.EC PO SCH (08:34)
[2022-03-27] MEDS: DULoxetine 30 MG Cap PO SCH (08:34)
[2022-03-27] MEDS: Carvedilol 12.5 MG Tab PO SCH ×2 (08:35→17:11)
[2022-03-27] MEDS: Potassium Chloride 20 MEQ Tab.ER PO SCH (08:36)
[2022-03-27] MEDS: Furosemide 20 MG Tab PO SCH (08:36)
[2022-03-27] MEDS: Docusate Sodium 100 MG Cap PO SCH ×2 (08:36→22:19)
[2022-03-27] MEDS: Spironolactone 25 MG Tab PO SCH (08:36)
[2022-03-27] MEDS: Allopurinol 100 MG Tab PO SCH (08:37)
[2022-03-27] MEDS: Bisacodyl 5 MG Tab PO SCH ×2 (08:37→22:15)
[2022-03-27] MEDS: Clopidogrel 75 MG Tab PO SCH (08:37)
[2022-03-27] MEDS: Pantoprazole 40 MG Tab.CR PO SCH (12:05)
[2022-03-27] MEDS ORDERED: Furosemide 40 MG Tab PO ONE (16:00)
[2022-03-27] MEDS: QUEtiapine 25 MG Tab PO SCH (22:16)
[2022-03-27] MEDS: atorvaSTATin 20 MG Tab PO SCH (22:16)
[2022-03-28] MEDS: Ibuprofen 400 MG Tab PO SCH ×4 (03:23→21:28)
[2022-03-28] MEDS: Acetaminophen 500 MG Tab PO SCH ×4 (03:24→19:44)
[2022-03-28 05:04] LABS: ESTIMATED GFR 58 mL/min (>60)
[2022-03-28] MEDS: Formoterol/Mometasone 200-5 MCG 8.8 GM Inhaler IH SCH ×2 (07:36→21:28)
[2022-03-28] MEDS ORDERED: Dextrose 5%-Lactated Ringers 1,000 ML IV SCH (07:45)
[2022-03-28] MEDS: Pantoprazole 40 MG Tab.CR PO SCH (07:51)
[2022-03-28] MEDS: Carvedilol 12.5 MG Tab PO SCH ×2 (07:51→16:54)
[2022-03-28] MEDS: Furosemide 20 MG/2 ML VIAL IVPUSH SCH ×2 (08:43→15:03)
[2022-03-28] MEDS: Magnesium Sulfate/Water 2 GM in Premix Bag 1 BAG IV SCH ×3 (08:44→19:45)
[2022-03-28] MEDS: Potassium Phos in 0.9 % NaCl 15 MMOL in Premix Bag 1 BAG IV SCH ×6 (08:44→13:19)
[2022-03-28] MEDS: amLODIPine 5 MG Tab PO SCH (08:57)
[2022-03-28] MEDS: Gabapentin 300 MG Cap PO SCH ×3 (08:57→21:27)
[2022-03-28] MEDS: Lisinopril 20 MG Tab PO SCH (08:57)
[2022-03-28] MEDS: carBAMazepine 100 MG Tab ER PO SCH ×2 (08:57→21:27)
[2022-03-28] MEDS: Allopurinol 100 MG Tab PO SCH (08:58)
[2022-03-28] MEDS: Fenofibrate,Micronized 67 MG Cap PO SCH (08:58)
[2022-03-28] MEDS: Potassium Chloride 20 MEQ Tab.ER PO SCH (08:58)
[2022-03-28] MEDS: DULoxetine 30 MG Cap PO SCH (08:58)
[2022-03-28] MEDS: Aspirin 81 MG Tab.EC PO SCH (08:58)
[2022-03-28] MEDS: Bisacodyl 5 MG Tab PO SCH ×2 (08:58→21:27)
[2022-03-28] MEDS: Spironolactone 25 MG Tab PO SCH (08:58)
[2022-03-28] MEDS: Furosemide 20 MG Tab PO SCH (08:59)
[2022-03-28] MEDS: Clopidogrel 75 MG Tab PO SCH (08:59)
[2022-03-28] MEDS: Docusate Sodium 100 MG Cap PO SCH ×2 (08:59→21:27)
[2022-03-28] MEDS: HYDROmorphone 2 MG Tab PO PRN (19:43)
[2022-03-28] MEDS: atorvaSTATin 20 MG Tab PO SCH (21:27)
[2022-03-28] MEDS: QUEtiapine 25 MG Tab PO SCH (21:28)
[2022-03-29] MEDS ORDERED: Coagulation Factor VIIa Recombinant (per MCG) 2 MG Vial IVPUSH ONE ×2 (01:17→01:21)
[2022-03-29] MEDS: Acetaminophen 500 MG Tab PO SCH ×4 (01:44→21:25)
[2022-03-29] MEDS: Magnesium Sulfate/Water 2 GM in Premix Bag 1 BAG IV SCH ×4 (01:45→19:30)
[2022-03-29] MEDS: Ibuprofen 400 MG Tab PO SCH ×4 (03:35→21:29)
[2022-03-29 05:04] LABS: ESTIMATED GFR 58 mL/min (>60)
[2022-03-29] MEDS: Pantoprazole 40 MG Tab.CR PO SCH (07:20)
[2022-03-29] MEDS: Carvedilol 12.5 MG Tab PO SCH ×2 (07:20→17:17)
[2022-03-29] MEDS: Formoterol/Mometasone 200-5 MCG 8.8 GM Inhaler IH SCH ×2 (07:44→21:26)
[2022-03-29] MEDS: Fenofibrate,Micronized 67 MG Cap PO SCH (09:08)
[2022-03-29] MEDS: Spironolactone 25 MG Tab PO SCH (09:09)
[2022-03-29] MEDS: Aspirin 81 MG Tab.EC PO SCH (09:09)
[2022-03-29] MEDS: carBAMazepine 100 MG Tab ER PO SCH ×2 (09:09→21:37)
[2022-03-29] MEDS: DULoxetine 30 MG Cap PO SCH (09:09)
[2022-03-29] MEDS: Gabapentin 300 MG Cap PO SCH ×3 (09:09→21:27)
[2022-03-29] MEDS: Potassium Chloride 20 MEQ Tab.ER PO SCH ×4 (09:10→21:28)
[2022-03-29] MEDS: Lisinopril 20 MG Tab PO SCH (09:11)
[2022-03-29] MEDS: Bisacodyl 5 MG Tab PO SCH ×2 (09:11→21:27)
[2022-03-29] MEDS: amLODIPine 5 MG Tab PO SCH (09:11)
[2022-03-29] MEDS: Furosemide 20 MG/2 ML VIAL IVPUSH SCH ×2 (09:12→14:32)
[2022-03-29] MEDS: Furosemide 20 MG Tab PO SCH (09:12)
[2022-03-29] MEDS: Allopurinol 100 MG Tab PO SCH (09:12)
[2022-03-29] MEDS: Docusate Sodium 100 MG Cap PO SCH ×2 (09:13→21:27)
[2022-03-29] MEDS: atorvaSTATin 20 MG Tab PO SCH (21:27)
[2022-03-29] MEDS: QUEtiapine 25 MG Tab PO SCH (21:29)
[2022-03-29] MEDS: HYDROmorphone 2 MG Tab PO PRN (21:35)
[2022-04-24 08:59] LABS: ESTIMATED GFR 58 mL/min (>60)
== END 2022-03-30 09:30 | disposition home or self-care (01) | DRG 330 ==
LOC: JP.MS 07:15 → EDSTATUS 10:15 → JP.MS 11:30 → JP.ZCENSUS 11:31 → JP.MS 03-30 07:00 → JP.ZCENSUS 03-30 07:00 → JP.MS 03-30 11:53 → JP.ZCENSUS 03-30 11:53
PROVIDERS: ADMIT Surgery; ATTEND Surgery
PROC: 0DTF0ZZ Resection of Right Large Intestine, Open Approach (ICD-10-PCS; principal; 2022-03-23)
PROC: 0JB80ZZ Excision of Abdomen Subcutaneous Tissue and Fascia, Open Approach (ICD-10-PCS; 2022-03-23)
PROC: 3E0M05Z Introduction of Adhesion Barrier into Peritoneal Cavity, Open Approach (ICD-10-PCS; 2022-03-23)
PROC: 0WQF0ZZ Repair Abdominal Wall, Open Approach (ICD-10-PCS; 2022-03-26)
DX: K63.5 Polyp of colon (principal); I13.0 Hypertensive heart and chronic kidney disease with heart failure and stage 1 through stage 4 chronic kidney disease, or unspecified chronic kidney disease; I50.22 Chronic systolic (congestive) heart failure; K56.7 Ileus, unspecified; D17.0 Benign lipomatous neoplasm of skin and subcutaneous tissue of head, face and neck; D17.79 Benign lipomatous neoplasm of other sites; I71.40 Abdominal aortic aneurysm, without rupture, unspecified; N18.30 Chronic kidney disease, stage 3 unspecified; J44.9 Chronic obstructive pulmonary disease, unspecified; I25.10 Atherosclerotic heart disease of native coronary artery without angina pectoris; F32.A Depression, unspecified; E11.22 Type 2 diabetes mellitus with diabetic chronic kidney disease; E78.5 Hyperlipidemia, unspecified; I44.7 Left bundle-branch block, unspecified; I73.9 Peripheral vascular disease, unspecified; I45.6 Pre-excitation syndrome; F17.210 Nicotine dependence, cigarettes, uncomplicated; H54.7 Unspecified visual loss; E78.00 Pure hypercholesterolemia, unspecified; K59.09 Other constipation; M54.9 Dorsalgia, unspecified; G89.29 Other chronic pain; M10.9 Gout, unspecified; F03.90 Unspecified dementia, unspecified severity, without behavioral disturbance, psychotic disturbance, mood disturbance, and anxiety; F43.10 Post-traumatic stress disorder, unspecified; E11.9 Type 2 diabetes mellitus without complications; Z79.01 Long term (current) use of anticoagulants; Z79.82 Long term (current) use of aspirin; Z95.5 Presence of coronary angioplasty implant and graft; Z79.84 Long term (current) use of oral hypoglycemic drugs; Z79.899 Other long term (current) drug therapy; Z90.49 Acquired absence of other specified parts of digestive tract
CPT/HCPCS: 36415; 80053; 82947; 83735; 83880; 84100; 85025; 85027; 88304; 88309; 93005; 94640; 97110-GP; 97116-GP; 97162-GP; 97165-GO; 97530-GP; 97535-GP; A9270-GY; C9113; J0171; J0330; J0456; J0694; J1100; J1940; J2020; J2175; J2185; J2310; J2405; J2704; J2710; J2795; J3010; J3410; J3475; J3490; J7050; J7120; J7121; J7189; J7620

== ENCOUNTER 2024-09-25 10:47 | Emergency (ER) | payer OTHER, MEDICARE, BC ==
[2024-09-25] MEDS: fentaNYL 100 MCG/2 ML SDV IVPUSH ONE (11:30)
[2024-09-25] MEDS: Sodium Chloride 0.9% 80 ML IV SCH (11:38)
[2024-09-25] MEDS: Iopamidol 612 MG/ML 100 ML Bottle IV ONE (11:38)
[2024-09-25 12:08] LABS: APPEARANCE,URINE CLEAR (CLEAR); BILIRUBIN,URINE NEGATIVE (NEGATIVE); COLOR,URINE YELLOW (YELLOW); GLUCOSE,URINE 100 mg/dL (NEGATIVE); KETONES,URINE NEGATIVE (NEGATIVE); LEUKOCYTE ESTERASE,URINE TRACE (NEGATIVE); NITRITE,URINE NEGATIVE (NEGATIVE); OCCULT BLOOD,URINE TRACE-INTACT (NEGATIVE); PH,URINE 7.5 (5.0-8.0); PROTEIN,URINE NEGATIVE (NEGATIVE); UROBILINOGEN,URINE 0.2 EU/dL (0.2-1.0)
[2024-09-25 12:15] LABS: AMORPHOUS SEDIMENT,URINE NOT SEEN; BACTERIA,URINE RARE; EPITHELIAL CELLS,URINE RARE; MUCUS,URINE NOT SEEN; RBC,URINE 0-5 (0-5); WBC,URINE 0-5 (0-5)
[2024-09-25] MEDS: niCARdipine HCl 25 MG in Sodium Chloride 0.9% 240 ML IV SCH (12:18)
[2024-09-25 12:26] LABS: BASOPHILS ABSOLUTE AUTO 0.04 K/uL (0.00-0.10); BASOPHILS PERCENT AUTO 0.5 % (0.1-1.3); EOSINOPHILS ABSOLUTE AUTO 0.12 K/uL (0.00-0.40); EOSINOPHILS PERCENT AUTO 1.4 % (0.0-5.4); HEMATOCRIT 41.9 % (38.4-49.7); HEMOGLOBIN 14.2 g/dL (12.9-16.9); IMMATURE GRAN ABSOLUTE AUTO 0.04 K/uL (0.00-0.23); IMMATURE GRAN PERCENT AUTO 0.5 % (0.0-0.7); LYMPHOCYTES ABSOLUTE AUTO 1.37 K/uL (0.8-3.3); MEAN CORPUSCULAR HEMOGLOBIN 32.4 pg (31.6-35.5); MEAN CORPUSCULAR HGB CONC 33.9 g/dL (31.6-35.5); MEAN CORPUSCULAR VOLUME 95.7 fL (81.4-99.0); MONOCYTES ABSOLUTE AUTO 0.34 K/uL (0.20-0.90); NEUTROPHILS ABSOLUTE AUTO 6.67 K/uL (1.0-7.6); NEUTROPHILS PERCENT AUTO 77.6 % (40.0-78.1); PLATELET COUNT,PLT 199 K/uL (130-375); RED BLOOD CELL COUNT 4.38 M/uL (4.14-5.76); WHITE BLOOD CELL COUNT,WBC 8.6 K/uL (3.2-11.0)
[2024-09-25 12:49] LABS: A/G RATIO 0.9 (1.2-2.2); ALANINE AMINOTRANSFERASE,ALT 11 U/L (12-78); ALBUMIN 3.2 g/dL (3.4-5.0); ALKALINE PHOSPHATASE 56 U/L (46-116); ASPARTATE AMNIOTRANSFERASE,AST 22 U/L (15-37); BILIRUBIN TOTAL 0.7 mg/dL (0.2-1.0); BLOOD UREA NITROGEN,BUN 14 mg/dL (7-18); CALCIUM 8.8 mg/dL (8.5-10.1); CARBON DIOXIDE,CO2 30 mmol/L (21-32); CHLORIDE,CL 99 mmol/L (100-108); CREATININE 1.3 mg/dL (0.8-1.3); EST CRCL DRUG DOSING (CG) 57.78 mL/min; ESTIMATED GFR 57 mL/min (>60); GLUCOSE RANDOM 167 mg/dL (74-106); POTASSIUM,K 4.5 mmol/L (3.6-5.2); PROTEIN TOTAL,TP 6.8 g/dL (6.4-8.2); SODIUM,NA 137 mmol/L (140-148)
[2024-09-25 12:50] LABS: ANION GAP 12.5 mmol/L (5.0-14.0)
[2024-09-25] MEDS: DESMOPRESSIN IV ONE (12:58)
[2024-09-25] MEDS: SODIUM CHLORIDE 0.9% IV ONE (12:58)
== END 2024-09-25 13:10 ==
LOC: JP.ED 10:47
DX: S06.6X9A Traumatic subarachnoid hemorrhage with loss of consciousness of unspecified duration, initial encounter (principal); S06.5X9A Traumatic subdural hemorrhage with loss of consciousness of unspecified duration, initial encounter; S22.42XA Multiple fractures of ribs, left side, initial encounter for closed fracture; I10 Essential (primary) hypertension; J44.9 Chronic obstructive pulmonary disease, unspecified; E11.9 Type 2 diabetes mellitus without complications; I25.10 Atherosclerotic heart disease of native coronary artery without angina pectoris; E78.00 Pure hypercholesterolemia, unspecified; F17.200 Nicotine dependence, unspecified, uncomplicated; Z95.1 Presence of aortocoronary bypass graft; Z79.82 Long term (current) use of aspirin; Z79.02 Long term (current) use of antithrombotics/antiplatelets; Z79.899 Other long term (current) drug therapy; V49.49XA Driver injured in collision with other motor vehicles in traffic accident, initial encounter; Y93.89 Activity, other specified
CPT/HCPCS: 36415; 70450; 70450-26; 71260; 71260-26; 72125; 72125-26; 76377; 76377-26; 80053; 81001; 85025; 86850; 86900; 86901; 96365; 96375; 99285; 99285-25; C1758; J2404; J2597; J3010; Q9967

== ENCOUNTER 2024-10-12 11:54 | Inpatient (IN) | payer MEDICARE, BC ==
[2024-10-12] MEDS: HYDROmorphone 1 MG/ML Syringe IM ONE (12:38)
[2024-10-12] MEDS ORDERED: Sodium Chloride 0.9% 10 ML Syringe FLUSH PRN (13:11)
[2024-10-12 13:25] LABS: BASOPHILS ABSOLUTE AUTO 0.04 K/uL (0.00-0.10); BASOPHILS PERCENT AUTO 0.4 % (0.1-1.3); EOSINOPHILS ABSOLUTE AUTO 0.06 K/uL (0.00-0.40); EOSINOPHILS PERCENT AUTO 0.7 % (0.0-5.4); HEMATOCRIT 37.2 % (38.4-49.7); HEMOGLOBIN 12.6 g/dL (12.9-16.9); IMMATURE GRAN ABSOLUTE AUTO 0.05 K/uL (0.00-0.23); IMMATURE GRAN PERCENT AUTO 0.6 % (0.0-0.7); LYMPHOCYTES ABSOLUTE AUTO 1.38 K/uL (0.8-3.3); LYMPHOCYTES PERCENT AUTO 15.5 % (11.4-47.7); MEAN CORPUSCULAR HEMOGLOBIN 32.1 pg (31.6-35.5); MEAN CORPUSCULAR HGB CONC 33.9 g/dL (31.6-35.5); MEAN CORPUSCULAR VOLUME 94.7 fL (81.4-99.0); MONOCYTES ABSOLUTE AUTO 0.58 K/uL (0.20-0.90); MONOCYTES PERCENT AUTO 6.5 % (3.3-12.6); NEUTROPHILS ABSOLUTE AUTO 6.82 K/uL (1.0-7.6); NEUTROPHILS PERCENT AUTO 76.3 % (40.0-78.1); PLATELET COUNT,PLT 384 K/uL (130-375); RED BLOOD CELL COUNT 3.93 M/uL (4.14-5.76); WHITE BLOOD CELL COUNT,WBC 8.9 K/uL (3.2-11.0)
[2024-10-12 13:40] LABS: CALCIUM 9.7 mg/dL (8.5-10.1); CREATININE 1.3 mg/dL (0.8-1.3); EST CRCL DRUG DOSING (CG) 57.78 mL/min; POTASSIUM,K 3.4 mmol/L (3.6-5.2)
[2024-10-12 13:49] LABS: ANION GAP 14.4 mmol/L (5.0-14.0)
[2024-10-12] MEDS ORDERED: Ondansetron 4 MG Tab.DIS PO PRN (15:24)
[2024-10-12] MEDS ORDERED: Sennosides/Docusate Sodium 50-8.6 MG Tab PO PRN (15:24)
[2024-10-12] MEDS ORDERED: Magnesium Hydroxide 400 MG/5 ML Susp 30 ML Cup PO PRN (15:24)
[2024-10-12] MEDS ORDERED: Ondansetron 4 MG/2 ML SDV IV PRN (15:24)
[2024-10-12] MEDS: Potassium Chloride 20 MEQ Tab.ER PO ONE (16:30)
[2024-10-12] MEDS: oxyCODONE 5 MG Tab PO PRN (16:31)
[2024-10-12] MEDS: Albuterol 6.7 GM Inhaler INH SCH (16:34)
[2024-10-12] MEDS: HYDROmorphone 0.5 MG/0.5 ML Syringe IVPUSH PRN (17:59)
[2024-10-12] MEDS: QUEtiapine 25 MG Tab PO SCH (20:34)
[2024-10-12] MEDS: Acetaminophen 500 MG Tab PO SCH (20:34)
[2024-10-12] MEDS: levETIRAcetam 250 MG Tab PO SCH (20:34)
[2024-10-12] MEDS: Gabapentin 300 MG Cap PO SCH (20:35)
[2024-10-12] MEDS: Formoterol/Mometasone 200-5 MCG 8.8 GM Inhaler IH SCH (20:35)
[2024-10-12] MEDS: atorvaSTATin 20 MG Tab PO SCH (20:35)
[2024-10-12] MEDS: Carvedilol 12.5 MG Tab PO SCH (20:36)
[2024-10-12] MEDS: carBAMazepine 100 MG Tab ER PO SCH (20:40)
[2024-10-13] MEDS: Fenofibrate,Micronized 67 MG Cap PO SCH (08:09)
[2024-10-13] MEDS: DULoxetine 30 MG Cap PO SCH (08:09)
[2024-10-13] MEDS: Aspirin 81 MG Tab.EC PO SCH (08:10)
[2024-10-13] MEDS: Lisinopril 20 MG Tab PO SCH (08:10)
[2024-10-13] MEDS: amLODIPine 5 MG Tab PO SCH (08:11)
[2024-10-13] MEDS: Allopurinol 100 MG Tab PO SCH (08:11)
[2024-10-13] MEDS: Spironolactone 25 MG Tab PO SCH (08:11)
[2024-10-13] MEDS ORDERED: oxyCODONE 5 MG Tab PO PRN (10:57)
== END 2024-10-13 13:40 | disposition home or self-care (01) | DRG 563 ==
LOC: JP.ED 11:54 → JP.ICU 15:10
PROVIDERS: ADMIT Internal Medicine; ATTEND Internal Medicine
DX: S82.892A Other fracture of left lower leg, initial encounter for closed fracture (principal); I10 Essential (primary) hypertension; I11.9 Hypertensive heart disease without heart failure; I25.10 Atherosclerotic heart disease of native coronary artery without angina pectoris; J43.1 Panlobular emphysema; H54.7 Unspecified visual loss; E78.00 Pure hypercholesterolemia, unspecified; Z95.5 Presence of coronary angioplasty implant and graft; Z79.51 Long term (current) use of inhaled steroids; J44.9 Chronic obstructive pulmonary disease, unspecified; X50.1XXA Overexertion from prolonged static or awkward postures, initial encounter; K59.09 Other constipation; K21.9 Gastro-esophageal reflux disease without esophagitis; N42.9 Disorder of prostate, unspecified; R53.1 Weakness; M54.9 Dorsalgia, unspecified; M48.062 Spinal stenosis, lumbar region with neurogenic claudication; W19.XXXA Unspecified fall, initial encounter; G89.29 Other chronic pain; E11.9 Type 2 diabetes mellitus without complications; M10.9 Gout, unspecified; Z86.73 Personal history of transient ischemic attack (TIA), and cerebral infarction without residual deficits; Z79.01 Long term (current) use of anticoagulants; Z79.82 Long term (current) use of aspirin; Z90.49 Acquired absence of other specified parts of digestive tract; Z98.890 Other specified postprocedural states; Z87.891 Personal history of nicotine dependence; Z79.899 Other long term (current) drug therapy
CPT/HCPCS: 29515; 36415; 73610 ×2; 80048; 85025; 96372; 99284; J1171; 94640; 99222; 99238; A9270-GY

== ENCOUNTER 2024-10-13 13:44 | Inpatient (IN) | payer MEDICARE, BC ==
[2024-10-13] MEDS ORDERED: Ondansetron 4 MG Tab.DIS PO PRN (13:58)
[2024-10-13] MEDS ORDERED: Sennosides/Docusate Sodium 50-8.6 MG Tab PO PRN (13:58)
[2024-10-13] MEDS: Acetaminophen 500 MG Tab PO SCH (14:23)
[2024-10-13] MEDS: oxyCODONE 5 MG Tab PO PRN (21:06)
[2024-10-14] MEDS ORDERED: Non-Formulary Medication 1 Each (Fenofibrate,Micronized [Fenofibrate] 134 MG Cap) PO SCH (09:00)
[2024-10-14] MEDS ORDERED: Acetaminophen 500 MG Tab PO SCH (09:00)
[2024-10-14] MEDS ORDERED: Non-Formulary Medication 1 Each (Levetiracetam [Keppra] 500 MG Tablet) PO SCH (09:00)
[2024-10-14] MEDS ORDERED: Non-Formulary Medication 1 Each (Lisinopril [Lisinopril] 40 MG Tablet) PO SCH (09:00)
[2024-10-14] MEDS: Gabapentin 300 MG Cap PO SCH (09:42)
[2024-10-14] MEDS: Allopurinol 100 MG Tab PO SCH (09:42)
[2024-10-14] MEDS: Fenofibrate,Micronized 67 MG Cap PO SCH (09:42)
[2024-10-14] MEDS: levETIRAcetam 250 MG Tab PO SCH (09:43)
[2024-10-14] MEDS: DULoxetine 30 MG Cap PO SCH (09:43)
[2024-10-14] MEDS: Spironolactone 25 MG Tab PO SCH (09:43)
[2024-10-14] MEDS: Aspirin 81 MG Tab.EC PO SCH (09:43)
[2024-10-14] MEDS: carBAMazepine 100 MG Tab ER PO SCH (09:43)
[2024-10-14] MEDS: amLODIPine 5 MG Tab PO SCH (09:44)
[2024-10-14] MEDS: Carvedilol 12.5 MG Tab PO SCH (09:46)
[2024-10-14] MEDS: Lisinopril 20 MG Tab PO SCH (09:47)
[2024-10-14] MEDS: Formoterol/Mometasone 200-5 MCG 8.8 GM Inhaler INH SCH (09:50)
[2024-10-14] MEDS: Albuterol 6.7 GM Inhaler INH SCH (10:54)
[2024-10-14] MEDS ORDERED: Non-Formulary Medication 1 Each (Atorvastatin [Lipitor] 80 MG Tablet) PO SCH (21:00)
[2024-10-14] MEDS ORDERED: Non-Formulary Medication 1 Each (Quetiapine [Seroquel] 50 MG Tablet) PO SCH (21:00)
[2024-10-14] MEDS: QUEtiapine 25 MG Tab PO SCH (21:21)
[2024-10-14] MEDS: atorvaSTATin 20 MG Tab PO SCH (21:24)
[2024-10-15] MEDS: hydrALAZINE 10 MG Tab PO SCH (08:59)
[2024-10-16] MEDS: Sodium Chloride 0.9% 1,000 ML IV SCH (00:18)
[2024-10-16] MEDS ORDERED: Bupivacaine 0.5% 50 ML MDV ONE (07:13)
[2024-10-16] MEDS ORDERED: Sodium Chloride 0.9% 10 ML Syringe IV PRN (10:00)
[2024-10-16] MEDS ORDERED: ceFAZolin 2 GM in Premix Bag 1 BAG IV ONE (12:00)
== END 2024-10-16 09:30 | disposition home or self-care (01) | DRG 948 ==
LOC: JP.MS 13:44
PROVIDERS: ADMIT Internal Medicine; ATTEND Internal Medicine
DX: R53.1 Weakness (principal); S82.892A Other fracture of left lower leg, initial encounter for closed fracture; H54.7 Unspecified visual loss; I11.9 Hypertensive heart disease without heart failure; I25.10 Atherosclerotic heart disease of native coronary artery without angina pectoris; E78.00 Pure hypercholesterolemia, unspecified; J44.9 Chronic obstructive pulmonary disease, unspecified; K59.09 Other constipation; K21.9 Gastro-esophageal reflux disease without esophagitis; N42.9 Disorder of prostate, unspecified; G89.29 Other chronic pain; M54.9 Dorsalgia, unspecified; M10.9 Gout, unspecified; F03.90 Unspecified dementia, unspecified severity, without behavioral disturbance, psychotic disturbance, mood disturbance, and anxiety; F43.10 Post-traumatic stress disorder, unspecified; E11.9 Type 2 diabetes mellitus without complications; Z79.01 Long term (current) use of anticoagulants; Z90.49 Acquired absence of other specified parts of digestive tract; Z95.5 Presence of coronary angioplasty implant and graft; Z86.73 Personal history of transient ischemic attack (TIA), and cerebral infarction without residual deficits; Z79.82 Long term (current) use of aspirin; Z79.899 Other long term (current) drug therapy; Z98.890 Other specified postprocedural states; Z87.891 Personal history of nicotine dependence
CPT/HCPCS: 73610-26-LT; 73610-LT; 94640; 97110-GP; 97162-GP; 97165-GO; 99305; 99315; A9270-GY; J0665; J7030

== ENCOUNTER 2024-10-16 09:30 | Inpatient (IN) | payer MEDICARE, BC ==
[2024-10-16] MEDS ORDERED: HYDROmorphone 1 MG/ML Syringe IVPUSH PRN (09:49)
[2024-10-16] MEDS ORDERED: Naloxone 0.4 MG/ML SDV IVPUSH PRN (09:49)
[2024-10-16] MEDS ORDERED: Ondansetron 4 MG/2 ML SDV IV PRN (09:49)
[2024-10-16] MEDS ORDERED: Magnesium Hydroxide 400 MG/5 ML Susp 30 ML Cup PO PRN (09:49)
[2024-10-16] MEDS ORDERED: Ondansetron 4 MG Tab.DIS PO PRN (09:49)
[2024-10-16] MEDS ORDERED: Sennosides/Docusate Sodium 50-8.6 MG Tab PO PRN (09:49)
[2024-10-16] MEDS ORDERED: HYDROmorphone 0.5 MG/0.5 ML Syringe IVPUSH PRN (10:06)
[2024-10-16] MEDS ORDERED: Midazolam 1 MG/ML 2 ML SDV ONE (11:25)
[2024-10-16] MEDS ORDERED: Propofol 200 MG/20 ML SDV ONE (11:25)
[2024-10-16] MEDS ORDERED: fentaNYL 100 MCG/2 ML SDV ONE (11:25)
[2024-10-16 11:35] LABS: CREATININE 1.1 mg/dL (0.8-1.3); EST CRCL DRUG DOSING (CG) 68.65 mL/min; POTASSIUM,K 4.1 mmol/L (3.6-5.2)
[2024-10-16 11:36] LABS: ANION GAP 13.1 mmol/L (5.0-14.0)
[2024-10-16 11:37] LABS: INR 1.1; PROTHROMBIN TIME 11.6 sec (9.2-10.6)
[2024-10-16] MEDS ORDERED: ceFAZolin 2 GM in Premix Bag 1 BAG IV ONE (12:00)
[2024-10-16] MEDS: ceFAZolin 2 GM in Premix Bag 1 BAG IV ONE (12:10)
[2024-10-16] MEDS ORDERED: Acetaminophen 500 MG Tab PO SCH (14:00)
[2024-10-16] MEDS: Albuterol 6.7 GM Inhaler INH SCH (14:32)
[2024-10-16] MEDS: Bupivacaine 0.5% 50 ML MDV INJECT ONE (14:39)
[2024-10-16] MEDS: Gabapentin 300 MG Cap PO SCH (14:55)
[2024-10-16] MEDS: hydrALAZINE 10 MG Tab PO SCH (14:55)
[2024-10-16] MEDS: Acetaminophen 500 MG Tab PO SCH (14:55)
[2024-10-16] MEDS: oxyCODONE 5 MG Tab PO PRN (18:27)
[2024-10-16] MEDS: Formoterol/Mometasone 200-5 MCG 8.8 GM Inhaler INH SCH (20:11)
[2024-10-16] MEDS: levETIRAcetam 250 MG Tab PO SCH (20:12)
[2024-10-16] MEDS: carBAMazepine 100 MG Tab ER PO SCH (20:12)
[2024-10-16] MEDS: QUEtiapine 25 MG Tab PO SCH (20:13)
[2024-10-16] MEDS: atorvaSTATin 20 MG Tab PO SCH (20:13)
[2024-10-16] MEDS: Carvedilol 12.5 MG Tab PO SCH (20:13)
[2024-10-16] MEDS ORDERED: Non-Formulary Medication 1 Each (Quetiapine [Seroquel] 50 MG Tablet) PO SCH (21:00)
[2024-10-16] MEDS ORDERED: Non-Formulary Medication 1 Each (Atorvastatin [Lipitor] 80 MG Tablet) PO SCH (21:00)
[2024-10-16] MEDS ORDERED: Non-Formulary Medication 1 Each (Levetiracetam [Keppra] 500 MG Tablet) PO SCH (21:00)
[2024-10-17] MEDS: DULoxetine 30 MG Cap PO SCH (08:07)
[2024-10-17] MEDS: Allopurinol 100 MG Tab PO SCH (08:08)
[2024-10-17] MEDS: Fenofibrate,Micronized 67 MG Cap PO SCH (08:08)
[2024-10-17] MEDS: amLODIPine 5 MG Tab PO SCH (08:09)
[2024-10-17] MEDS: Spironolactone 25 MG Tab PO SCH (08:09)
[2024-10-17] MEDS: Lisinopril 20 MG Tab PO SCH (08:09)
[2024-10-17] MEDS: Aspirin 81 MG Tab.EC PO SCH (08:09)
[2024-10-17] MEDS ORDERED: Non-Formulary Medication 1 Each (Lisinopril [Lisinopril] 40 MG Tablet) PO SCH (09:00)
[2024-10-17] MEDS ORDERED: Non-Formulary Medication 1 Each (Fenofibrate,Micronized [Fenofibrate] 134 MG Cap) PO SCH (09:00)
[2024-10-19] MEDS ORDERED: Sodium Chloride 0.9% 10 ML Syringe IV PRN (10:25)
[2024-10-20] MEDS ORDERED: oxyCODONE 5 MG Tab PO PRN (09:33)
== END 2024-10-21 10:00 | DRG 494 ==
LOC: JP.MS 09:30
PROVIDERS: ADMIT Internal Medicine; ATTEND Hospitalist
PROC: 0QSK04Z Reposition Left Fibula with Internal Fixation Device, Open Approach (ICD-10-PCS; principal; 2024-10-16 11:30)
DX: S82.892A Other fracture of left lower leg, initial encounter for closed fracture (principal); I10 Essential (primary) hypertension; I25.10 Atherosclerotic heart disease of native coronary artery without angina pectoris; J44.9 Chronic obstructive pulmonary disease, unspecified; M48.062 Spinal stenosis, lumbar region with neurogenic claudication; E78.00 Pure hypercholesterolemia, unspecified; K59.09 Other constipation; M10.9 Gout, unspecified; F43.10 Post-traumatic stress disorder, unspecified; F03.90 Unspecified dementia, unspecified severity, without behavioral disturbance, psychotic disturbance, mood disturbance, and anxiety; F15.90 Other stimulant use, unspecified, uncomplicated; R53.1 Weakness; W01.0XXA Fall on same level from slipping, tripping and stumbling without subsequent striking against object, initial encounter; Z79.02 Long term (current) use of antithrombotics/antiplatelets; Z79.51 Long term (current) use of inhaled steroids; Z79.899 Other long term (current) drug therapy; Z79.891 Long term (current) use of opiate analgesic; Z79.82 Long term (current) use of aspirin; Z95.1 Presence of aortocoronary bypass graft; Z87.81 Personal history of (healed) traumatic fracture; Z86.73 Personal history of transient ischemic attack (TIA), and cerebral infarction without residual deficits; Z79.01 Long term (current) use of anticoagulants; Z95.5 Presence of coronary angioplasty implant and graft; Z90.49 Acquired absence of other specified parts of digestive tract; Z98.890 Other specified postprocedural states; S06.5XAS Traumatic subdural hemorrhage with loss of consciousness status unknown, sequela; S06.6X Traumatic subarachnoid hemorrhage; Y93.9 Activity, unspecified; Y92.009 Unspecified place in unspecified non-institutional (private) residence as the place of occurrence of the external cause
CPT/HCPCS: 01480-QZ; 36415; 76000; 80048; 85610; 93005; 93010; 94640; 97110-GO; 97110-GP; 97161-GP; 97165-GO; 97530-GP; 99222; 99231; 99232; 99239; A9270-GY; C1713; J0665; J0690; J2250; J2704; J3010

== ENCOUNTER 2024-11-07 14:25 | Inpatient (IN) | payer MEDICARE, BC ==
[2024-11-07] MEDS ORDERED: Magnesium Hydroxide 400 MG/5 ML Susp 30 ML Cup PO PRN (15:29)
[2024-11-07] MEDS ORDERED: HYDROmorphone 1 MG/ML Syringe IVPUSH PRN (15:29)
[2024-11-07] MEDS ORDERED: Ondansetron 4 MG/2 ML SDV IV PRN (15:29)
[2024-11-07] MEDS: Albuterol 6.7 GM Inhaler INH SCH (16:24)
[2024-11-07] MEDS: cefTRIAXone 2 GM in Sodium Chloride 0.9% 50 ML IV SCH (16:25)
[2024-11-07] MEDS: oxyCODONE 5 MG Tab PO PRN (18:59)
[2024-11-07] MEDS: Formoterol/Mometasone 200-5 MCG 8.8 GM Inhaler IH SCH (20:09)
[2024-11-07] MEDS: levETIRAcetam 250 MG Tab PO SCH (20:10)
[2024-11-07] MEDS: Lactobacillus Rhamnosus GG (Probiotic) Cap PO SCH (20:10)
[2024-11-07] MEDS: Gabapentin 300 MG Cap PO SCH (20:11)
[2024-11-07] MEDS: atorvaSTATin 20 MG Tab PO SCH (20:11)
[2024-11-07] MEDS: Acetaminophen 500 MG Tab PO SCH (20:12)
[2024-11-07] MEDS: Carvedilol 12.5 MG Tab PO SCH (20:13)
[2024-11-07] MEDS: QUEtiapine 25 MG Tab PO SCH (20:13)
[2024-11-07] MEDS: carBAMazepine 100 MG Tab ER PO SCH (20:13)
[2024-11-07] MEDS: VANCOmycin 1 GM in Sodium Chloride 0.9% 250 ML IV SCH (20:15)
[2024-11-07] MEDS ORDERED: Non-Formulary Medication 1 Each (Atorvastatin [Lipitor] 80 MG Tablet) PO SCH (21:00)
[2024-11-07] MEDS ORDERED: Non-Formulary Medication 1 Each (Fluticasone Propion/Salmeterol [Advair 250-50 Diskus] 1 E IH SCH (21:00)
[2024-11-07] MEDS ORDERED: Non-Formulary Medication 1 Each (Quetiapine [Seroquel] 50 MG Tablet) PO SCH (21:00)
[2024-11-07] MEDS ORDERED: Non-Formulary Medication 1 Each (Levetiracetam [Keppra] 500 MG Tablet) PO SCH (21:00)
[2024-11-08 06:19] LABS: HEMATOCRIT 34.9 % (38.4-49.7); HEMOGLOBIN 11.5 g/dL (12.9-16.9); MEAN CORPUSCULAR HEMOGLOBIN 31.8 pg (31.6-35.5); MEAN CORPUSCULAR VOLUME 96.4 fL (81.4-99.0); RED BLOOD CELL COUNT 3.62 M/uL (4.14-5.76); WHITE BLOOD CELL COUNT,WBC 10.9 K/uL (3.2-11.0)
[2024-11-08 06:36] LABS: ANION GAP 11.2 mmol/L (5.0-14.0); CALCIUM 9.3 mg/dL (8.5-10.1); EST CRCL DRUG DOSING (CG) 73.94 mL/min; MAGNESIUM 1.9 mg/dL (1.8-2.4); POTASSIUM,K 3.6 mmol/L (3.6-5.2)
[2024-11-08 07:03] LABS: C-REACTIVE PROTEIN 29.61 mg/dL (<0.50)
[2024-11-08] MEDS: Spironolactone 25 MG Tab PO SCH (08:08)
[2024-11-08] MEDS: Lisinopril 20 MG Tab PO SCH (08:08)
[2024-11-08] MEDS: DULoxetine 30 MG Cap PO SCH (08:08)
[2024-11-08] MEDS: Aspirin 81 MG Tab.EC PO SCH (08:09)
[2024-11-08] MEDS: Fenofibrate,Micronized 67 MG Cap PO SCH (08:09)
[2024-11-08] MEDS: amLODIPine 5 MG Tab PO SCH (08:10)
[2024-11-08] MEDS: Allopurinol 100 MG Tab PO SCH (08:10)
[2024-11-08] MEDS: Sennosides/Docusate Sodium 50-8.6 MG Tab PO PRN (08:12)
[2024-11-08] MEDS ORDERED: Non-Formulary Medication 1 Each (Lisinopril [Lisinopril] 40 MG Tablet) PO SCH (09:00)
[2024-11-08] MEDS ORDERED: Non-Formulary Medication 1 Each (Fenofibrate,Micronized [Fenofibrate] 134 MG Cap) PO SCH (09:00)
[2024-11-09 06:13] LABS: HEMATOCRIT 31.8 % (38.4-49.7); HEMOGLOBIN 10.3 g/dL (12.9-16.9); MEAN CORPUSCULAR HEMOGLOBIN 31.3 pg (31.6-35.5); MEAN CORPUSCULAR HGB CONC 32.4 g/dL (31.6-35.5); MEAN CORPUSCULAR VOLUME 96.7 fL (81.4-99.0); RED BLOOD CELL COUNT 3.29 M/uL (4.14-5.76); WHITE BLOOD CELL COUNT,WBC 7.7 K/uL (3.2-11.0)
[2024-11-09 06:34] LABS: CALCIUM 9.3 mg/dL (8.5-10.1); EST CRCL DRUG DOSING (CG) 73.94 mL/min; POTASSIUM,K 3.5 mmol/L (3.6-5.2)
[2024-11-09 06:52] LABS: ANION GAP 14.5 mmol/L (5.0-14.0)
[2024-11-09 06:53] LABS: C-REACTIVE PROTEIN 25.38 mg/dL (<0.50)
[2024-11-09] MEDS: Potassium Chloride 20 MEQ Tab.ER PO ONE (08:38)
[2024-11-10 06:23] LABS: ANION GAP 8.2 mmol/L (5.0-14.0); CALCIUM 9.2 mg/dL (8.5-10.1); EST CRCL DRUG DOSING (CG) 73.94 mL/min; POTASSIUM,K 3.6 mmol/L (3.6-5.2)
[2024-11-10] MEDS ORDERED: Bupivacaine 0.5% 30 ML SDV ONE (06:58)
[2024-11-10] MEDS ORDERED: fentaNYL 100 MCG/2 ML SDV ONE (07:41)
[2024-11-10] MEDS ORDERED: Propofol 200 MG/20 ML SDV ONE (07:41)
[2024-11-10] MEDS ORDERED: Midazolam 1 MG/ML 2 ML SDV ONE (07:41)
[2024-11-10] MEDS: HYDROmorphone 0.5 MG/0.5 ML Syringe IVPUSH PRN (20:19)
[2024-11-11 05:59] LABS: HEMATOCRIT 31.2 % (38.4-49.7); MEAN CORPUSCULAR HEMOGLOBIN 30.9 pg (31.6-35.5); MEAN CORPUSCULAR HGB CONC 32.1 g/dL (31.6-35.5); MEAN CORPUSCULAR VOLUME 96.3 fL (81.4-99.0); RED BLOOD CELL COUNT 3.24 M/uL (4.14-5.76); WHITE BLOOD CELL COUNT,WBC 7.9 K/uL (3.2-11.0)
[2024-11-11 06:19] LABS: ANION GAP 7.8 mmol/L (5.0-14.0); C-REACTIVE PROTEIN 17.62 mg/dL (<0.50); CALCIUM 9.2 mg/dL (8.5-10.1); CREATININE 0.9 mg/dL (0.8-1.3); EST CRCL DRUG DOSING (CG) 82.15 mL/min; POTASSIUM,K 3.8 mmol/L (3.6-5.2); VANCOMYCIN RANDOM 18.4 ug/mL (0.0-50.0)
[2024-11-11] MEDS ORDERED: Acetaminophen 325 MG Tab PO PRN (16:25)
[2024-11-13 05:51] LABS: HEMATOCRIT 31.4 % (38.4-49.7); HEMOGLOBIN 10.1 g/dL (12.9-16.9); MEAN CORPUSCULAR HEMOGLOBIN 30.9 pg (31.6-35.5); MEAN CORPUSCULAR HGB CONC 32.2 g/dL (31.6-35.5); RED BLOOD CELL COUNT 3.27 M/uL (4.14-5.76); WHITE BLOOD CELL COUNT,WBC 5.7 K/uL (3.2-11.0)
[2024-11-13 06:06] LABS: ANION GAP 6.3 mmol/L (5.0-14.0); C-REACTIVE PROTEIN 9.03 mg/dL (<0.50); CALCIUM 9.3 mg/dL (8.5-10.1); CREATININE 1.1 mg/dL (0.8-1.3); EST CRCL DRUG DOSING (CG) 67.22 mL/min; POTASSIUM,K 3.9 mmol/L (3.6-5.2)
[2024-11-13] MEDS ORDERED: Rocuronium 50 MG/5 ML Vial ONE (11:44)
[2024-11-13] MEDS ORDERED: Dexamethasone 4 MG/ML SDV ONE (11:44)
[2024-11-13] MEDS ORDERED: Glycopyrrolate 0.2 MG/ML 5 ML MDV ONE (11:44)
[2024-11-13] MEDS ORDERED: Succinylcholine 200 MG/10 ML MDV ONE (11:44)
[2024-11-13] MEDS ORDERED: Neostigmine Methylsulfate 10 MG/10 ML MDV ONE (11:44)
[2024-11-13] MEDS ORDERED: Propofol 200 MG/20 ML SDV ONE (11:44)
[2024-11-13] MEDS ORDERED: Ondansetron 4 MG/2 ML SDV ONE (11:44)
[2024-11-13] MEDS ORDERED: fentaNYL 250 MCG/5 ML SDV ONE (11:46)
[2024-11-13] MEDS: Bupivacaine 0.5% 50 ML MDV ONE (15:33)
[2024-11-14 05:54] LABS: HEMATOCRIT 31.6 % (38.4-49.7); HEMOGLOBIN 10.1 g/dL (12.9-16.9); MEAN CORPUSCULAR HEMOGLOBIN 30.7 pg (31.6-35.5); RED BLOOD CELL COUNT 3.29 M/uL (4.14-5.76); WHITE BLOOD CELL COUNT,WBC 6.9 K/uL (3.2-11.0)
[2024-11-14 06:13] LABS: ANION GAP 6.1 mmol/L (5.0-14.0); CALCIUM 9.2 mg/dL (8.5-10.1); CREATININE 0.9 mg/dL (0.8-1.3); EST CRCL DRUG DOSING (CG) 82.15 mL/min; MAGNESIUM 1.7 mg/dL (1.8-2.4); POTASSIUM,K 3.9 mmol/L (3.6-5.2)
[2024-11-14] MEDS: hydrALAZINE 10 MG Tab PO SCH (08:39)
[2024-11-14] MEDS: Magnesium Oxide 400 MG Tab PO SCH (08:39)
[2024-11-14] MEDS: Magnesium Sulfate 2 GM/50 mL 2 GM in Premix Bag 1 BAG IV SCH (10:27)
[2024-11-16] MEDS ORDERED: Sodium Chloride 0.9% 10 ML Syringe IV PRN (09:27)
[2024-11-16] MEDS: hydrALAZINE 10 MG Tab PO SCH (16:20)
[2024-11-17 06:17] LABS: EST CRCL DRUG DOSING (CG) 73.94 mL/min; VANCOMYCIN RANDOM 21.3 ug/mL (0.0-50.0)
[2024-11-17] MEDS: Enoxaparin 40 MG/0.4 ML Syringe SUBCUT SCH (15:33)
[2024-11-18 05:48] LABS: HEMATOCRIT 31.6 % (38.4-49.7); HEMOGLOBIN 10.2 g/dL (12.9-16.9); MEAN CORPUSCULAR HGB CONC 32.3 g/dL (31.6-35.5); RED BLOOD CELL COUNT 3.29 M/uL (4.14-5.76)
[2024-11-18 06:04] LABS: EST CRCL DRUG DOSING (CG) 73.94 mL/min; MAGNESIUM 1.8 mg/dL (1.8-2.4); POTASSIUM,K 4.2 mmol/L (3.6-5.2)
[2024-11-18 06:09] LABS: ANION GAP 10.2 mmol/L (5.0-14.0)
[2024-11-19] MEDS: hydrALAZINE 10 MG Tab PO SCH (16:57)
[2024-11-20] MEDS: hydrALAZINE 25 MG Tab PO SCH (09:21)
[2024-11-21 06:10] LABS: HEMOGLOBIN 10.1 g/dL (12.9-16.9); MEAN CORPUSCULAR HEMOGLOBIN 31.4 pg (31.6-35.5); MEAN CORPUSCULAR HGB CONC 32.6 g/dL (31.6-35.5); MEAN CORPUSCULAR VOLUME 96.3 fL (81.4-99.0); RED BLOOD CELL COUNT 3.22 M/uL (4.14-5.76); WHITE BLOOD CELL COUNT,WBC 7.1 K/uL (3.2-11.0)
[2024-11-21 06:32] LABS: C-REACTIVE PROTEIN 1.57 mg/dL (<0.50); CALCIUM 9.4 mg/dL (8.5-10.1); CREATININE 1.2 mg/dL (0.8-1.3); EST CRCL DRUG DOSING (CG) 61.61 mL/min; POTASSIUM,K 4.2 mmol/L (3.6-5.2)
[2024-11-21 06:33] LABS: ANION GAP 8.2 mmol/L (5.0-14.0)
[2024-11-21] MEDS: VANCOmycin 1 GM in Sodium Chloride 0.9% 250 ML IV SCH (18:08)
[2024-11-22] MEDS: Ondansetron 4 MG Tab.DIS PO PRN (19:30)
[2024-11-23 05:54] LABS: HEMATOCRIT 31.9 % (38.4-49.7); HEMOGLOBIN 10.2 g/dL (12.9-16.9); MEAN CORPUSCULAR HEMOGLOBIN 30.7 pg (31.6-35.5); MEAN CORPUSCULAR VOLUME 96.1 fL (81.4-99.0); RED BLOOD CELL COUNT 3.32 M/uL (4.14-5.76); WHITE BLOOD CELL COUNT,WBC 6.8 K/uL (3.2-11.0)
[2024-11-23 06:12] LABS: ANION GAP 6.8 mmol/L (5.0-14.0); C-REACTIVE PROTEIN 1.77 mg/dL (<0.50); CALCIUM 9.3 mg/dL (8.5-10.1); CREATININE 1.2 mg/dL (0.8-1.3); EST CRCL DRUG DOSING (CG) 61.61 mL/min; POTASSIUM,K 4.5 mmol/L (3.6-5.2); VANCOMYCIN RANDOM 23.7 ug/mL (0.0-50.0)
[2024-11-23] MEDS: VANCOmycin 1.25 GM in Sodium Chloride 0.9% 250 ML IV SCH (13:50)
[2024-11-25 05:48] LABS: CREATININE 1.3 mg/dL (0.7-1.3); EST CRCL DRUG DOSING (CG) 56.88 mL/min
[2024-11-25] MEDS: VANCOmycin 1.5 GM in Sodium Chloride 0.9% 250 ML IV SCH (08:08)
[2024-11-27 06:12] LABS: CREATININE 1.2 mg/dL (0.8-1.3); EST CRCL DRUG DOSING (CG) 61.61 mL/min; VANCOMYCIN RANDOM 16.4 ug/mL (0.0-50.0)
== END 2024-11-27 09:45 | DRG 857 ==
LOC: JP.ICU 14:25
PROVIDERS: ADMIT Internal Medicine; ATTEND Internal Medicine
PROC: 02HV33Z Insertion of Infusion Device into Superior Vena Cava, Percutaneous Approach (ICD-10-PCS; principal; 2024-11-09)
PROC: 0JBR0ZZ Excision of Left Foot Subcutaneous Tissue and Fascia, Open Approach (ICD-10-PCS; 2024-11-10)
PROC: 0SPG0JZ Removal of Synthetic Substitute from Left Ankle Joint, Open Approach (ICD-10-PCS; 2024-11-13)
DX: T81.49XA Infection following a procedure, other surgical site, initial encounter (principal); I50.22 Chronic systolic (congestive) heart failure; T84.59XA Infection and inflammatory reaction due to other internal joint prosthesis, initial encounter; L03.116 Cellulitis of left lower limb; I25.10 Atherosclerotic heart disease of native coronary artery without angina pectoris; H54.7 Unspecified visual loss; E78.00 Pure hypercholesterolemia, unspecified; K59.09 Other constipation; B95.62 Methicillin resistant Staphylococcus aureus infection as the cause of diseases classified elsewhere; K21.9 Gastro-esophageal reflux disease without esophagitis; I11.0 Hypertensive heart disease with heart failure; J43.1 Panlobular emphysema; E11.51 Type 2 diabetes mellitus with diabetic peripheral angiopathy without gangrene; I25.5 Ischemic cardiomyopathy; Z79.82 Long term (current) use of aspirin; Z79.899 Other long term (current) drug therapy; Z79.51 Long term (current) use of inhaled steroids; Z95.1 Presence of aortocoronary bypass graft; Z86.0100 Personal history of colon polyps, unspecified; Z86.73 Personal history of transient ischemic attack (TIA), and cerebral infarction without residual deficits; Z95.5 Presence of coronary angioplasty implant and graft; Z90.49 Acquired absence of other specified parts of digestive tract; Z98.890 Other specified postprocedural states
CPT/HCPCS: 36415; 73600-26-LT; 73600-LT; 73610-26-LT; 73610-LT; 80048; 80202; 82565; 83735; 85027; 86140; 87070; 87075; 87077; 87186; 87205; 94640; 97110-GO; 97110-GP; 97162-GP; 97165-GO; 97605; 99222; 99231; 99232; 99239; A9270-GY; C1751; J0330; J0665; J0696; J1100; J1596; J1650; J2250; J2405; J2704; J2710; J3010; J3475; J3490; J7050; Q0162

== ENCOUNTER 2024-12-21 16:03 | Inpatient (IN) | payer MEDICARE, BC ==
[2024-12-21] MEDS ORDERED: VANCOmycin 1 GM SDV IV SCH (18:00)
[2024-12-21] MEDS: Acetaminophen/HYDROcodone 325-5 MG Tab PO PRN (18:14)
[2024-12-21] MEDS: VANCOmycin 1.5 GM in Sodium Chloride 0.9% 250 ML IV SCH (19:21)
[2024-12-21] MEDS: Formoterol/Mometasone 200-5 MCG 8.8 GM Inhaler IH SCH (20:58)
[2024-12-21] MEDS: atorvaSTATin 20 MG Tab PO SCH (21:06)
[2024-12-21] MEDS: Gabapentin 300 MG Cap PO SCH (21:06)
[2024-12-21] MEDS: Albuterol 6.7 GM Inhaler INH SCH (21:06)
[2024-12-21] MEDS: Lactobacillus Rhamnosus GG (Probiotic) Cap PO SCH (21:06)
[2024-12-21] MEDS: QUEtiapine 100 MG Tab PO SCH (21:07)
[2024-12-21] MEDS: hydrALAZINE 25 MG Tab PO SCH (21:07)
[2024-12-21] MEDS: carBAMazepine 100 MG Tab ER PO SCH (21:07)
[2024-12-21] MEDS: Carvedilol 12.5 MG Tab PO SCH (21:07)
[2024-12-21] MEDS: levETIRAcetam 250 MG Tab PO SCH (21:07)
[2024-12-22 06:01] LABS: BASOPHILS ABSOLUTE AUTO 0.04 K/uL (0.00-0.10); BASOPHILS PERCENT AUTO 0.5 % (0.1-1.3); EOSINOPHILS ABSOLUTE AUTO 1.02 K/uL (0.00-0.40); EOSINOPHILS PERCENT AUTO 13.1 % (0.0-5.4); HEMATOCRIT 32.5 % (38.4-49.7); HEMOGLOBIN 10.6 g/dL (12.9-16.9); IMMATURE GRAN PERCENT AUTO 0.3 % (0.0-0.7); LYMPHOCYTES ABSOLUTE AUTO 1.34 K/uL (0.8-3.3); LYMPHOCYTES PERCENT AUTO 17.3 % (11.4-47.7); MEAN CORPUSCULAR HEMOGLOBIN 30.4 pg (31.6-35.5); MEAN CORPUSCULAR HGB CONC 32.6 g/dL (31.6-35.5); MEAN CORPUSCULAR VOLUME 93.1 fL (81.4-99.0); MONOCYTES ABSOLUTE AUTO 0.66 K/uL (0.20-0.90); MONOCYTES PERCENT AUTO 8.5 % (3.3-12.6); NEUTROPHILS ABSOLUTE AUTO 4.68 K/uL (1.0-7.6); NEUTROPHILS PERCENT AUTO 60.3 % (40.0-78.1); PLATELET COUNT,PLT 376 K/uL (130-375); RED BLOOD CELL COUNT 3.49 M/uL (4.14-5.76); WHITE BLOOD CELL COUNT,WBC 7.8 K/uL (3.2-11.0)
[2024-12-22 06:05] LABS: IMMATURE GRAN ABSOLUTE AUTO 0.02 K/uL (0.00-0.23)
[2024-12-22 06:21] LABS: ANION GAP 6.1 mmol/L (5.0-14.0); CALCIUM 9.1 mg/dL (8.5-10.1); CREATININE 1.1 mg/dL (0.8-1.3); EST CRCL DRUG DOSING (CG) 67.22 mL/min; POTASSIUM,K 4.2 mmol/L (3.6-5.2)
[2024-12-22] MEDS ORDERED: fentaNYL 250 MCG/5 ML SDV ONE (09:06)
[2024-12-22] MEDS ORDERED: Propofol 200 MG/20 ML SDV ONE (09:07)
[2024-12-22] MEDS ORDERED: Glycopyrrolate 0.2 MG/ML 5 ML MDV ONE (09:07)
[2024-12-22] MEDS ORDERED: Rocuronium 50 MG/5 ML Vial ONE (09:07)
[2024-12-22] MEDS ORDERED: Ondansetron 4 MG/2 ML SDV ONE (09:07)
[2024-12-22] MEDS ORDERED: Neostigmine Methylsulfate 10 MG/10 ML MDV ONE (09:07)
[2024-12-22] MEDS ORDERED: Dexamethasone 4 MG/ML SDV ONE (09:07)
[2024-12-22] MEDS ORDERED: Bupivacaine 0.5% 30 ML SDV ONE (09:12)
[2024-12-22] MEDS: VANCOmycin 1.5 GM in Sodium Chloride 0.9% 250 ML IV SCH (12:00)
[2024-12-22] MEDS ORDERED: Morphine 2 MG/ML SYRINGE IVPUSH PRN (12:08)
[2024-12-22] MEDS: fentaNYL 50 MCG/ML SDV IVPUSH ONE (12:24)
[2024-12-22] MEDS: Formoterol/Mometasone 200-5 MCG 8.8 GM Inhaler IH SCH (13:47)
[2024-12-22] MEDS: Spironolactone 25 MG Tab PO SCH (13:49)
[2024-12-22] MEDS: DULoxetine 30 MG Cap PO SCH (13:50)
[2024-12-22] MEDS: Aspirin 81 MG Tab.EC PO SCH (13:51)
[2024-12-22] MEDS: Fenofibrate,Micronized 67 MG Cap PO SCH (13:51)
[2024-12-22] MEDS: Lisinopril 20 MG Tab PO SCH (13:52)
[2024-12-22] MEDS: Allopurinol 100 MG Tab PO SCH (13:52)
[2024-12-22] MEDS: amLODIPine 5 MG Tab PO SCH (13:53)
[2024-12-22] MEDS ORDERED: Sodium Chloride 0.9% 10 ML Syringe IV PRN (14:48)
[2024-12-22] MEDS: Acetaminophen 325 MG Tab PO PRN (20:45)
[2024-12-22] MEDS: oxyCODONE 5 MG Tab PO PRN (20:46)
[2024-12-22] MEDS: QUEtiapine 25 MG Tab PO SCH (20:48)
[2024-12-23 06:21] LABS: CREATININE 1.3 mg/dL (0.8-1.3); EST CRCL DRUG DOSING (CG) 56.88 mL/min; VANCOMYCIN RANDOM 17.9 ug/mL (0.0-50.0)
[2024-12-23] MEDS: VANCOmycin 1.5 GM in Sodium Chloride 0.9% 250 ML IV SCH (12:46)
[2024-12-23] MEDS: oxyCODONE 5 MG Tab PO PRN (19:42)
[2024-12-24] MEDS: Sennosides/Docusate Sodium 50-8.6 MG Tab PO PRN (21:24)
[2024-12-25] MEDS: Albuterol 6.7 GM Inhaler INH SCH (10:36)
[2024-12-25 11:37] LABS: CREATININE 1.2 mg/dL (0.7-1.3); EST CRCL DRUG DOSING (CG) 61.61 mL/min
== END 2024-12-25 13:25 | DRG 494 ==
LOC: JP.MS 16:03
PROVIDERS: ADMIT Specialist; ATTEND Specialist
PROC: 0QPH04Z Removal of Internal Fixation Device from Left Tibia, Open Approach (ICD-10-PCS; 2024-12-22)
PROC: 0SU Lower Joints, Supplement (ICD-10-PCS; 2024-12-22)
PROC: 0QSK04Z Reposition Left Fibula with Internal Fixation Device, Open Approach (ICD-10-PCS; principal; 2024-12-22 08:30)
DX: S82.842K Displaced bimalleolar fracture of left lower leg, subsequent encounter for closed fracture with nonunion (principal); I10 Essential (primary) hypertension; K21.9 Gastro-esophageal reflux disease without esophagitis; F43.10 Post-traumatic stress disorder, unspecified; F03.90 Unspecified dementia, unspecified severity, without behavioral disturbance, psychotic disturbance, mood disturbance, and anxiety; J44.9 Chronic obstructive pulmonary disease, unspecified; E11.9 Type 2 diabetes mellitus without complications; Z95.1 Presence of aortocoronary bypass graft; X58.XXXD Exposure to other specified factors, subsequent encounter
CPT/HCPCS: 36415; 76000; 80048; 80202; 82565; 85025; 94640; 97110-GP; 97161-GP; 97530-GP; 97605; A9270-GY; C1713; J0665; J1100; J1596; J2405; J2704; J2710; J3010; J3370; J3490; J7050; Q4133

== ENCOUNTER 2025-01-01 12:11 | Emergency (ER) | payer MEDICARE, BC ==
[2025-01-01 13:35] LABS: BASOPHILS ABSOLUTE AUTO 0.03 K/uL (0.00-0.10); BASOPHILS PERCENT AUTO 0.3 % (0.1-1.3); EOSINOPHILS ABSOLUTE AUTO 0.70 K/uL (0.00-0.40); EOSINOPHILS PERCENT AUTO 8.0 % (0.0-5.4); IMMATURE GRAN PERCENT AUTO 0.2 % (0.0-0.7); LYMPHOCYTES ABSOLUTE AUTO 1.11 K/uL (0.8-3.3); LYMPHOCYTES PERCENT AUTO 12.7 % (11.4-47.7); MONOCYTES ABSOLUTE AUTO 0.70 K/uL (0.20-0.90); MONOCYTES PERCENT AUTO 8.0 % (3.3-12.6); NEUTROPHILS ABSOLUTE AUTO 6.16 K/uL (1.0-7.6); NEUTROPHILS PERCENT AUTO 70.8 % (40.0-78.1); PLATELET COUNT,PLT 325 K/uL (130-375); RED BLOOD CELL COUNT 3.76 M/uL (4.14-5.76); WHITE BLOOD CELL COUNT,WBC 8.7 K/uL (3.2-11.0)
[2025-01-01 13:37] LABS: IMMATURE GRAN ABSOLUTE AUTO 0.02 K/uL (0.00-0.23)
[2025-01-01 13:58] LABS: A/G RATIO 0.5 (1.2-2.2); ALANINE AMINOTRANSFERASE,ALT 13 U/L (12-78); ASPARTATE AMNIOTRANSFERASE,AST 15 U/L (15-37); BILIRUBIN TOTAL 0.4 mg/dL (0.2-1.0); BLOOD UREA NITROGEN,BUN 40 mg/dL (7-18); CARBON DIOXIDE,CO2 28 mmol/L (21-32); CHLORIDE,CL 104 mmol/L (100-108); CREATININE 1.4 mg/dL (0.8-1.3); EST CRCL DRUG DOSING (CG) 52.81 mL/min; ESTIMATED GFR 52 mL/min (>60); GLUCOSE RANDOM 139 mg/dL (74-106); POTASSIUM,K 4.1 mmol/L (3.6-5.2); PROTEIN TOTAL,TP 6.8 g/dL (6.4-8.2); SODIUM,NA 138 mmol/L (140-148); TROPONIN I HIGH SENSITIVITY 16.9 pg/mL (<=60.3)
[2025-01-01 17:47] LABS: APPEARANCE,URINE CLEAR (CLEAR); GLUCOSE,URINE NEGATIVE (NEGATIVE); OCCULT BLOOD,URINE NEGATIVE (NEGATIVE)
[2025-01-01 17:53] LABS: EPITHELIAL CELLS,URINE NOT SEEN
== END 2025-01-01 18:48 | disposition home or self-care (01) ==
LOC: JP.ED 12:11
DX: R55 Syncope and collapse (principal); I25.10 Atherosclerotic heart disease of native coronary artery without angina pectoris; E78.00 Pure hypercholesterolemia, unspecified; I10 Essential (primary) hypertension; J44.9 Chronic obstructive pulmonary disease, unspecified; E11.9 Type 2 diabetes mellitus without complications; Z79.82 Long term (current) use of aspirin; Z79.899 Other long term (current) drug therapy; Z79.51 Long term (current) use of inhaled steroids; Z86.73 Personal history of transient ischemic attack (TIA), and cerebral infarction without residual deficits; Z95.1 Presence of aortocoronary bypass graft
CPT/HCPCS: 36415; 71045; 80053; 81001; 84484; 85025; 93005; 96360; 99283; 99285; C1758; J7030

== ENCOUNTER 2025-04-10 00:43 | Emergency (ER) | payer MEDICARE, BC ==
[2025-04-10 00:56] LABS: BASOPHILS PERCENT AUTO 0.3 % (0.1-1.3); EOSINOPHILS ABSOLUTE AUTO 0.37 K/uL (0.00-0.40); EOSINOPHILS PERCENT AUTO 4.8 % (0.0-5.4); IMMATURE GRAN PERCENT AUTO 0.3 % (0.0-0.7); LYMPHOCYTES ABSOLUTE AUTO 1.92 K/uL (0.8-3.3); LYMPHOCYTES PERCENT AUTO 25.0 % (11.4-47.7); MONOCYTES ABSOLUTE AUTO 0.51 K/uL (0.20-0.90); MONOCYTES PERCENT AUTO 6.6 % (3.3-12.6); NEUTROPHILS ABSOLUTE AUTO 4.84 K/uL (1.0-7.6); NEUTROPHILS PERCENT AUTO 63.0 % (40.0-78.1); PLATELET COUNT,PLT 276 K/uL (130-375); RED BLOOD CELL COUNT 4.25 M/uL (4.14-5.76); WHITE BLOOD CELL COUNT,WBC 7.7 K/uL (3.2-11.0)
[2025-04-10 00:59] LABS: BASOPHILS ABSOLUTE AUTO 0.02 K/uL (0.00-0.10); IMMATURE GRAN ABSOLUTE AUTO 0.02 K/uL (0.00-0.23)
[2025-04-10 01:00] LABS: BASE EXCESS VENOUS 2.2 mm/L; BICARBONATE,VENOUS 29.0 mmol/L; O2 SATURATION VENOUS 47.4; OXYHEMOGLOBIN 45.2 %; PCO2 VENOUS 57.4 mm/Hg; PH,VENOUS 7.324 (7.350-7.450); PO2 VENOUS 30.5 mm/Hg; TOTAL HEMOGLOBIN 12.9 g/dL (13.5-18.0)
[2025-04-10 01:21] LABS: A/G RATIO 0.7 (1.2-2.2); ALANINE AMINOTRANSFERASE,ALT 17 U/L (12-78); ASPARTATE AMNIOTRANSFERASE,AST 16 U/L (15-37); BILIRUBIN TOTAL 0.3 mg/dL (0.2-1.0); BLOOD UREA NITROGEN,BUN 29 mg/dL (7-18); CARBON DIOXIDE,CO2 31 mmol/L (21-32); CHLORIDE,CL 100 mmol/L (100-108); CREATININE 1.5 mg/dL (0.8-1.3); EST CRCL DRUG DOSING (CG) 50.63 mL/min; ESTIMATED GFR 48 mL/min (>60); POTASSIUM,K 3.8 mmol/L (3.6-5.2); PROTEIN TOTAL,TP 7.2 g/dL (6.4-8.2); SODIUM,NA 138 mmol/L (140-148)
[2025-04-10 01:30] LABS: GLUCOSE RANDOM 624 mg/dL (74-106)
[2025-04-10] MEDS ORDERED: 50% Dextrose in Water 50 ML Syringe IVPUSH PRN (01:34)
[2025-04-10] MEDS: Insulin Glargine,Human Rec. Analog 100 Units/ML 3 ML Pen SUBCUT ONE (02:06)
[2025-04-10] MEDS: Insulin Lispro 100 Unit/ML 3 ML KwikPen SUBCUT ONE (02:08)
[2025-04-10 03:19] LABS: APPEARANCE,URINE CLEAR (CLEAR); GLUCOSE,URINE >=1000 mg/dL (NEGATIVE); OCCULT BLOOD,URINE TRACE-INTACT (NEGATIVE)
[2025-04-10 03:30] LABS: SQUAMOUS EPITHELIAL CELLS,UR RARE /HPF; UROTHELIAL CELLS,URINE NOT SEEN /HPF
== END 2025-04-10 10:25 ==
LOC: JP.ED 00:43
DX: E11.65 Type 2 diabetes mellitus with hyperglycemia (principal); I11.0 Hypertensive heart disease with heart failure; I50.9 Heart failure, unspecified; I25.10 Atherosclerotic heart disease of native coronary artery without angina pectoris; E78.00 Pure hypercholesterolemia, unspecified; J44.9 Chronic obstructive pulmonary disease, unspecified; K21.9 Gastro-esophageal reflux disease without esophagitis; Z90.49 Acquired absence of other specified parts of digestive tract; Z95.5 Presence of coronary angioplasty implant and graft; Z79.82 Long term (current) use of aspirin; Z79.899 Other long term (current) drug therapy
CPT/HCPCS: 36415; 80053; 81001; 82009; 82803; 82947; 85025; 96360; 99285; A9270; J1815; J7030

== ENCOUNTER 2025-06-27 10:10 | Emergency (ER) | payer MEDICARE, BC ==
[2025-06-27 11:07] LABS: BASOPHILS ABSOLUTE AUTO 0.02 K/uL (0.00-0.10); BASOPHILS PERCENT AUTO 0.4 % (0.1-1.3); EOSINOPHILS ABSOLUTE AUTO 0.18 K/uL (0.00-0.40); EOSINOPHILS PERCENT AUTO 3.3 % (0.0-5.4); IMMATURE GRAN ABSOLUTE AUTO 0.01 K/uL (0.00-0.23); IMMATURE GRAN PERCENT AUTO 0.2 % (0.0-0.7); LYMPHOCYTES ABSOLUTE AUTO 0.96 K/uL (0.8-3.3); LYMPHOCYTES PERCENT AUTO 17.8 % (11.4-47.7); MONOCYTES ABSOLUTE AUTO 0.36 K/uL (0.20-0.90); MONOCYTES PERCENT AUTO 6.7 % (3.3-12.6); NEUTROPHILS ABSOLUTE AUTO 3.87 K/uL (1.0-7.6); NEUTROPHILS PERCENT AUTO 71.6 % (40.0-78.1); PLATELET COUNT,PLT 244 K/uL (130-375); RED BLOOD CELL COUNT 4.53 M/uL (4.14-5.76); WHITE BLOOD CELL COUNT,WBC 5.4 K/uL (3.2-11.0)
[2025-06-27 11:29] LABS: ALANINE AMINOTRANSFERASE,ALT 17 U/L (12-78); ASPARTATE AMNIOTRANSFERASE,AST 25 U/L (15-37); BLOOD UREA NITROGEN,BUN 30 mg/dL (7-18); CARBON DIOXIDE,CO2 31 mmol/L (21-32); CHLORIDE,CL 105 mmol/L (100-108); CREATININE 1.3 mg/dL (0.8-1.3); EST CRCL DRUG DOSING (CG) 58.42 mL/min; ESTIMATED GFR 57 mL/min (>60); GLUCOSE RANDOM 110 mg/dL (74-106); POTASSIUM,K 4.0 mmol/L (3.6-5.2); SODIUM,NA 142 mmol/L (140-148)
[2025-06-27 12:03] LABS: A/G RATIO 0.7 (1.2-2.2); BILIRUBIN TOTAL 0.4 mg/dL (0.2-1.0); PROTEIN TOTAL,TP 7.1 g/dL (6.4-8.2)
== END 2025-06-27 13:11 ==
LOC: JP.ED 10:10 → MERGE 10:10 → EDBD 10:10 → JP.ED 13:11
DX: J10.1 Influenza due to other identified influenza virus with other respiratory manifestations (principal); R09.02 Hypoxemia; F17.210 Nicotine dependence, cigarettes, uncomplicated; Z79.899 Other long term (current) drug therapy; Z79.4 Long term (current) use of insulin; Z79.82 Long term (current) use of aspirin
CPT/HCPCS: 36415; 71045; 80053; 83605; 85025; 87040; 87428; 99285; A9270